=== PATIENT | female | born 1950 | race Caucasian/White ===

== ENCOUNTER 2020-02-21 08:54 | Outpatient (CLI) | payer MEDICARE, SELFPAY ==
--- NOTE | 2020-02-21 09:07 | CT_ITS ---
WS: [id number] LDCT LUNG CANCER SCREENING TECHNIQUE: Noncontrast CT of the chest with coronal and sagittal reformatted images. CLINICAL INFORMATION: NICOTINE DEPENDENCE, CIGARETTES COMPARISON: None. DLP: 52.6 mGy.cm DIvol: 1.[address] scans at [facility] use at least one of these dose optimization techniques: automat ed exposure control; mA and/or kV adjustment per patient size (includes targeted exams where dose is matched to clinical indication); or iterative reconstruction. FINDINGS: No suspicious pulmonary parenchymal opacities. Mild chronic emphysematous changes. No acute pulmonary infiltrates. Slight atelectasis in the lung ba ses. Mild thoracic curve. Mild thoracic kyphosis. No focal pneumonia or pleural fluid. No mediastinal or hilar lymphadenopathy. No axillary lymphadenopathy. Cholecystectomy clips. CT/CT lung screening [id number] IMPRESSION: LUNG-RADS: 1-Negative FOLLOW UP: 12 Month: Continue annual screening with LDCT
== END 2020-02-21 08:55 | disposition home or self-care (01) ==
PROVIDERS: PCP Nurse Practitioner Family; Visit Provider Nurse Practitioner Family
DX: Z12.2 Encounter for screening for malignant neoplasm of respiratory organs (principal); F17.210 Nicotine dependence, cigarettes, uncomplicated
CPT/HCPCS: G0297

== ENCOUNTER 2020-02-22 09:03 | Outpatient (CLI) | payer MEDICARE, SELFPAY ==
--- NOTE | 2020-02-22 09:08 | MM_ITS ---
WS: [id number] SCREENING DIGITAL MAMMOGRAM WITH CAD HISTORY: SCREENING COMPARISON: 01/06/2019 and 12/26/2017 Bilateral CC and MLO views submitted. Computer aided detection analyzed. Breast composition: There are scattered areas of fibroglandular density. No suspicious masses, microc alcifications or architectural distortion. MM/[place] [id number] IMPRESSION: BI-RADS: 1-Negative FOLLOW UP: 1 Year Follow-up
== END 2020-02-22 09:04 | disposition home or self-care (01) ==
LOC: RADSHAW 09:07
PROVIDERS: PCP Nurse Practitioner Family; Visit Provider Internal Medicine
DX: Z12.31 Encounter for screening mammogram for malignant neoplasm of breast (principal)
CPT/HCPCS: 77067

== ENCOUNTER 2020-02-24 14:38 | Outpatient (CLI) | payer MEDICARE, SELFPAY ==
--- NOTE | 2020-02-24 14:58 | XR_ITS ---
WS: [id number] Bone mineral density performed on a [place], today. Clinical data: OSTEOPENIA COMPARISON STUDY: DEXA scan, 12/26/2017. Findings: The first 4 lumbar vertebral bodies demonstrated the bone mineral density of 1.084 g/cm2 for a young adult T score of -0.8. There is a levoscoliosis. Measurement of the left hip reveals a bone mineral density of 0.788 g/cm2 with a young adult T score of -1.7. Measurement of the right hip reveals the bone mineral density of 0.805 g/cm2 for young adult T score of -1.6. XR/XR DEXA axial skeleton* [id number] Impression: 1. There is normal bone mineral density of the lumbar spine which represents an improvement from the previous study. 2. Both hips show osteopenia but the bone mineral density has improved slightly compared to previous study.
== END 2020-02-24 14:39 | disposition home or self-care (01) ==
LOC: RADWPI 14:43
PROVIDERS: PCP Nurse Practitioner Family; Visit Provider Internal Medicine
DX: M85.88 Other specified disorders of bone density and structure, other site (principal)
CPT/HCPCS: 77080

== ENCOUNTER → 2021-07-30 10:27 | Outpatient (BNVA) | payer OTHER, SELFPAY | PROVIDERS: Visit Provider Family Medicine | DX: F17.218 Nicotine dependence, cigarettes, with other nicotine-induced disorders (principal); Z76.89 Persons encountering health services in other specified circumstances; Z13.220 Encounter for screening for lipoid disorders; Z13.6 Encounter for screening for cardiovascular disorders | CPT/HCPCS: 80053; 80061; 85025 ==

== ENCOUNTER → 2021-08-10 16:53 | Outpatient (BNVA) | payer OTHER, SELFPAY | PROVIDERS: Visit Provider Emergency Medicine | DX: S62.112A Displaced fracture of triquetrum [cuneiform] bone, left wrist, initial encounter for closed fracture (principal); W19.XXXA Unspecified fall, initial encounter | CPT/HCPCS: 73110 ==

== ENCOUNTER → 2021-08-14 13:11 | Outpatient (BNVA) | payer OTHER, SELFPAY | PROVIDERS: Referring Provider Emergency Medicine; Visit Provider Physician Assistant | DX: S62.112A Displaced fracture of triquetrum [cuneiform] bone, left wrist, initial encounter for closed fracture (principal); X58.XXXA Exposure to other specified factors, initial encounter; M19.032 Primary osteoarthritis, left wrist | CPT/HCPCS: 73110 ==

== ENCOUNTER 2021-08-14 14:38 | Outpatient (CLI) | payer OTHER, SELFPAY | END 2021-08-14 14:39 | disposition home or self-care (01) | LOC: SPT 14:38 | PROVIDERS: Visit Provider Physician Assistant | DX: Z46.89 Encounter for fitting and adjustment of other specified devices (principal); S62.112D Displaced fracture of triquetrum [cuneiform] bone, left wrist, subsequent encounter for fracture with routine healing; X58.XXXD Exposure to other specified factors, subsequent encounter | CPT/HCPCS: 97760; L3809 ==

== ENCOUNTER → 2021-08-28 08:17 | Outpatient (BNVA) | payer OTHER, SELFPAY | PROVIDERS: Visit Provider Physician Assistant | DX: S62.112A Displaced fracture of triquetrum [cuneiform] bone, left wrist, initial encounter for closed fracture (principal); X58.XXXA Exposure to other specified factors, initial encounter | CPT/HCPCS: 73110 ==

== ENCOUNTER → 2022-09-22 13:33 | Outpatient (BNVA) | payer OTHER, SELFPAY | PROVIDERS: Visit Provider Emergency Medicine | DX: S99.922A Unspecified injury of left foot, initial encounter (principal); X58.XXXA Exposure to other specified factors, initial encounter; M20.12 Hallux valgus (acquired), left foot | CPT/HCPCS: 73630 ==

== ENCOUNTER 2023-07-03 09:46 | Outpatient (CLI) | payer MEDICARE, SELFPAY ==
--- NOTE | 2023-07-03 10:00 | XRR_ITS ---
PROCEDURE INFORMATION: Exam: XR Right Hip Exam date and time: 07/03/2023 10:04 AM Age: 73 years old Clinical indication: Hip pain; Right hip; Additional info: Right hip pain after fall - trouble ambulating TECHNIQUE: Imaging protocol: Radiologic exam of the right hip. Views: 1 view hip with pelvis when performed. COMPARISON: No relevant prior studies available. FINDINGS: Bones/joints: A small avulsion fracture is suspected from the greater trochanter. Otherwise, unremarkable. Soft tissues: Otherwise, unremarkable soft tissues. Vasculature: Calcified phleboliths. Small amount of arterial calcification. XR/XR hip RT 2-3V wo/w pel* [id number] IMPRESSION: A small avulsion fracture is suspected from the right greater trochanter.
== END 2023-07-03 09:47 | disposition home or self-care (01) ==
PROVIDERS: PCP Family Medicine; Visit Provider Nurse Practitioner Family
DX: M25.551 Pain in right hip (principal)
CPT/HCPCS: 73502

== ENCOUNTER 2023-07-04 12:21 | Inpatient (IN) | payer MEDICARE, SELFPAY ==
[2023-07-04 12:30] VITALS: BP 145/67; PULSE 85; RESP 16; TEMP 36.9; O2SAT 95; BMI 20.5
--- NOTE | 2023-07-04 14:13 | CT_ITS ---
WS: [id number] CT RIGHT HIP, NONCONTRAST, 3D. HISTORY: greater trochanter fracture Technique: All CT scans at [facility] use at least one of these dose optimization techniques: automated exposure control; mA and/or kV adjustment per patient size (includes targeted exams where dose is matched to clinical indication); or iterative reconstruction. DLP: 251.86 mGy.cm COMPARISON: Hip radiograph 07/03/2023 Comminuted fracture involving the greater trochanter. Fracture extends from the superior greater troc hanter inferiorly. There is mild displacement of this comminuted fracture. The fracture does not exte nd to the medial femoral neck. The femoral neck appears normal. No displacement at the hip joint. There is soft tissue edema and a small hematoma centered at the fracture site. Pubic rami is normal. IMPRESSION: 1. Comminuted RIGHT intertrochanteric fracture. Fracture extends from the superior to inferior great er trochanter. 2. No femoral neck fractures identified. The fracture line does not extend to the medial hip. If further evaluation is thought necessary noncontrast MRI would provide additional imaging concernin g marrow edema in the femoral neck. Notified Isaiah Baldwin DO at 07/04/2023 3:33 PM.
--- NOTE | 2023-07-04 14:38 | W.ED.FALL ---
Documented by User: Isaiah Baldwin DO 07/05/23 05:57 HPI - Fall General: Chief Complaint: Fall Stated Complaint: sent by Jose A Quick, hip pain Time Seen by Provider: 07/04/23 14:12 Source: patient Mode of arrival: ambulatory History of Present Illness: 73-year-old female who fell about a week and a half ago 2 weeks ago she is able to walk but had severe pain. She is complaining of pain to her right hip. She had seen her PCP in outpatient setting, x-ray showed a greater trochanter fracture that was moderately displaced however she continues to have pain. They consulted with orthopedics and they were directed here for advanced imaging. No other injuries from the fall. MD complaint: fall Onset (ago): week(s) (2) Fall from: standing Place fall occurred: home Associated symptoms-after fall: Reports difficulty walking; Denies abdominal pain, chest pain, confusion, headache(s), hematuria, lightheadedness, neck pain, numbness, short of breath, vertigo or weakness Review of Systems Const: Denies: fever(s) or chills Card: Denies: chest pain or lightheadedness Resp: Denies: dyspnea GI: Denies: abdominal pain : Denies: dysuria, urinary frequency, urinary urgency or hematuria Musc: Denies: neck pain or back pain Skin/Breast: Denies: rash Neuro: Reports: difficulty walking; Denies: headache(s), vertigo or confusion PFS ED PFSH: Medical History Tobacco use disorder Fall Osteoarthritis of wrist Fracture of triquetrum of left wrist Encounter for lipid screening for cardiovascular disease Nicotine dependence, cigarettes, with other nicotine-induced disorders Establishing care with new doctor, encounter for Surgical History History of tonsillectomy History of cholecystectomy Family History Mother CAD (coronary artery disease) Social History Smoking and tobacco/nicotine status: current every day tobacco/nicotine user Alcohol intake: current Alcohol intake frequency: holidays/special occasions only Substance/Drug Use: never Physical Exam Const: GENERAL APPEARANCE: cooperative and comfortable ORIENTATION/CONSCIOUSNESS: Yes awake, Yes oriented to person, Yes oriented to place and Yes oriented to time HENMT: COMMON NORMALS: normocephalic, atraumatic and hearing grossly normal bilaterally HEAD & SCALP: normocephalic and atraumatic Resp: COMMON NORMALS: normal respiratory effort, No retractions, No use of accessory muscles and clear to auscultation bilaterally AUSCULTATION: clear to auscultation bilaterally Cardio: COMMON NORMALS: regular rate, regular rhythm and No murmurs present (Cardio) RATE: regular rate RHYTHM: regular rhythm GI: COMMON NORMALS: Soft to palpation and No hepatosplenomegaly present AUSCULTATION: Yes normoactive bowel sounds PALPATION: Yes Soft to palpation, No Tenderness to palpation present (GI), No Guarding due to palpation present (GI) and Yes No hepatosplenomegaly present Extremity: COMMON NORMALS: normal to inspection, capillary refill normal, no clubbing, cyanosis or edema, no calf tenderness and no pedal edema OTHER: Left hip: Patient able to internally externally rotate without pain but unable to bear weight no obvious deformity. Neurovascular intact. Neuro: SENSORIUM/ORIENTATION: Yes oriented to person, Yes oriented to place and Yes oriented to time Skin: COMMON NORMALS: no rashes or lesions noted GENERAL SKIN EXAM: no rashes or lesions noted Course Vital Signs: Vital signs: Vital Signs Temperature 98.1 F 07/05/23 04:00 Pulse Rate 68 07/05/23 04:00 Respiratory Rate 17 07/05/23 04:00 Blood Pressure 153/73 07/05/23 04:00 Pulse Oximetry 95 07/05/23 04:00 Oxygen Delivery Me thod Room Air 07/04/23 20:28 MDM - Fall Medical Decision Making Care signed out to Dr. Villalta at change of shift. See final notes for diagnosis and disposition. Lab Data 07/05/23 03:18 07/05/23 03:18 Radiology Impressions Hip MRI 07/04/23 16:47 IMPRESSION: 1. Minimally displaced isolated fracture of the greater trochanter right femur with 2 mm fluid-filled gap. 2. In addition to the isolated fracture of the greater trochanter, there is near-complete/microtrabecular fracture involving the intertrochanteric femur with sparing the medial 1 cm without step-off of the medial cortex. Fracture line extends to the base of the lesser trochanter. Chest X-Ray 07/04/23 18:28 IMPRESSION: No acute findings. Laboratory Results WBC 13.46 10^3/uL (3.29-11.43) H 07/04/23 18:45 RBC 4.44 10^6/uL (3.85-5.65) 07/04/23 18:45 Hgb 14.50 g/dL (11.27-16.99) 07/04/23 18:45 Hct 42.6 % (36-47) 07/04/23 18:45 MCV 95.9 fl (85-98) 07/04/23 18:45 MCH 32.7 pg (27-33) 07/04/23 18:45 MCHC 34.0 g/dL (30-55) 07/04/23 18:45 RDW 13.7 % (12.1-15.1) 07/04/23 18:45 Plt Count 396 10^3/cmm (157-399) 07/04/23 18:45 MPV 8.9 fL (7.4-10.4) 07/04/23 18:45 Neut % (Auto) 52.7 % 07/04/23 18:45 Lymph % (Auto) 37.7 % 07/04/23 18:45 [place] % (Auto) 5.0 % 07/04/23 18:45 Eos % (Auto) 3.3 % 07/04/23 18:45 Baso % (Auto) 1.0 % 07/04/23 18:45 Neut # (Auto) 7.10 10^3/uL (1.8-7.7) 07/04/23 18:45 Lymph # (Auto) 5.1 10^3/uL (0.8-4.8) H 07/04/23 18:45 [place] # (Auto) 0.7 10^3/uL (0.2-0.9) 07/04/23 18:45 Eos # (Auto) 0.5 10^3/uL (0.0-0.8) 07/04/23 18:45 Baso # (Auto) 0.1 10^3/uL (0.0-0.1) 07/04/23 18:45 Nucleated RBC % (auto) 0 % 07/04/23 18:45 Nucleated RBCs # 0.0 /100WBC 07/04/23 18:45 PT 12.20 SECONDS (12.1-14.9) 07/04/23 18:45 INR 0.88 (0.8-1.2) 07/04/23 18:45 Sodium 142 mmol/L (136-145) 07/04/23 18:45 Potassium 4.2 mmol/L (3.5-5.1) 07/04/23 18:45 Chloride 104 mmol/L (98-107) 07/04/23 18:45 Carbon Dioxide 27 mmol/L (22-29) 07/04/23 18:45 Anion Gap 15.2 (5-19) 07/04/23 18:45 BUN 12 mg/dL (8-23) 07/04/23 18:45 Creatinine 0.5 mg/dL (0.5-0.9) 07/04/23 18:45 GFR Calculation Not Reportable 07/04/23 18:45 Glucose 106 mg/dL (65-115) 07/04/23 18:45 Calculated Osmolality 294 mOsm/kg (285-295) 07/04/23 18:45 Calcium 9.8 mg/dL (8.5-10.5) 07/04/23 18:45 Total Bilirubin 0.2 mg/dL (0.15-1.2) 07/04/23 18:45 AST 17 U/L (0-32) 07/04/23 18:45 ALT 9 U/L (0-33) 07/04/23 18:45 Alkaline Phosphatase 132 U/L (35-105) H 07/04/23 18:45 Total Protein 7.4 g/dL (6.6-8.7) 07/04/23 18:45 Albumin 4.4 g/dL (3.5-5.2) 07/04/23 18:45 Globulin 3.0 g/dL (1.3-4.6) 07/04/23 18:45 Blood Type AB Negative 07/04/23 19:16 Rho(D) Type Rh negative 07/04/23 19:16 Antibody Screen Negative 07/04/23 19:16 Discharge Plan Discharge Patient Disposition: Admitted As Inpatient Admit Provider: Garry Duncan Clinical Impression: Fall Closed intertrochanteric fracture of right hip Qualifiers: Encounter type: initial encounter Fracture alignment: displaced Qualified Code(s): S72.141A - Displaced intertrochanteric fracture of right femur, initial encounter for closed fracture Condition: Stable Coding Level of Care Code ED [employer] for Chg Fwd Documented by User: Sachin Villalta DO 07/05/23 00:36 HPI - Fall General: Chief Complaint: Fall Stated Complaint: sent by Jose A Quick, hip pain Time Seen by Provider: 07/04/23 14:12 [facility] ED PFSH: Medical History Tobacco use disorder Fall Osteoarthritis of wrist Fracture of triquetrum of left wrist Encounter for lipid screening for cardiovascular disease Nicotine dependence, cigarettes, with other nicotine-induced disorders Establishing care with new doctor, encounter for Surgical History History of tonsillectomy History of cholecystectomy Family History Mother CAD (coronary artery disease) Social History Smoking and tobacco/nicotine status: current every day tobacco/nicotine user Alcohol intake: current Alcohol intake frequency: holidays/special occasions only Substance/Drug Use: never Course Vital Signs: Vital signs: Vital Signs Temperature 98.1 F 07/05/23 04:00 Pulse Rate 68 07/05/23 04:00 Respiratory Rate 17 07/05/23 04:00 Blood Pressure 153/73 07/05/23 04:00 Pulse Oximetry 95 07/05/23 04:00 Oxygen Delivery Me thod Room Air 07/04/23 20:28 MDM - Fall Medical Decision Making Care signed out to Dr. Villalta at change of shift. See final notes for diagnosis and disposition. Lab work reviewed as well as chest x-ray hip MRI, Dr. Quick was consulted and discussed the patient with. He will plan for surgery tomorrow patient be admitted to the hospitalist Dr. Dakota Duncan was consulted and wanted to place the patient inpatient. Lab Data 07/05/23 03:18 07/05/23 03:18 Radiology Impressions Hip MRI 07/04/23 16:47 IMPRESSION: 1. Minimally displaced isolated fracture of the greater trochanter right femur with 2 mm fluid-filled gap. 2. In addition to the isolated fracture of the greater trochanter, there is near-complete/microtrabecular fracture involving the intertrochanteric femur with sparing the medial 1 cm without step-off of the medial cortex. Fracture line extends to the base of the lesser trochanter. Chest X-Ray 07/04/23 18:28 IMPRESSION: No acute findings. Laboratory Results WBC 13.46 10^3/uL (3.29-11.43) H 07/04/23 18:45 RBC 4.44 10^6/uL (3.85-5.65) 07/04/23 18:45 Hgb 14.50 g/dL (11.27-16.99) 07/04/23 18:45 Hct 42.6 % (36-47) 07/04/23 18:45 MCV 95.9 fl (85-98) 07/04/23 18:45 MCH 32.7 pg (27-33) 07/04/23 18:45 MCHC 34.0 g/dL (30-55) 07/04/23 18:45 RDW 13.7 % (12.1-15.1) 07/04/23 18:45 Plt Count 396 10^3/cmm (157-399) 07/04/23 18:45 MPV 8.9 fL (7.4-10.4) 07/04/23 18:45 Neut % (Auto) 52.7 % 07/04/23 18:45 Lymph % (Auto) 37.7 % 07/04/23 18:45 Flag[place] % (Auto) 5.0 % 07/04/23 18:45 Eos % (Auto) 3.3 % 07/04/23 18:45 Baso % (Auto) 1.0 % 07/04/23 18:45 Neut # (Auto) 7.10 10^3/uL (1.8-7.7) 07/04/23 18:45 Lymph # (Auto) 5.1 10^3/uL (0.8-4.8) H 07/04/23 18:45 [place] # (Auto) 0.7 10^3/uL (0.2-0.9) 07/04/23 18:45 Eos # (Auto) 0.5 10^3/uL (0.0-0.8) 07/04/23 18:45 Baso # (Auto) 0.1 10^3/uL (0.0-0.1) 07/04/23 18:45 Nucleated RBC % (auto) 0 % 07/04/23 18:45 Nucleated RBCs # 0.0 /100WBC 07/04/23 18:45 PT 12.20 SECONDS (12.1-14.9) 07/04/23 18:45 INR 0.88 (0.8-1.2) 07/04/23 18:45 Sodium 142 mmol/L (136-145) 07/04/23 18:45 Potassium 4.2 mmol/L (3.5-5.1) 07/04/23 18:45 Chloride 104 mmol/L (98-107) 07/04/23 18:45 Carbon Dioxide 27 mmol/L (22-29) 07/04/23 18:45 Anion Gap 15.2 (5-19) 07/04/23 18:45 BUN 12 mg/dL (8-23) 07/04/23 18:45 Creatinine 0.5 mg/dL (0.5-0.9) 07/04/23 18:45 GFR Calculation Not Reportable 07/04/23 18:45 Glucose 106 mg/dL (65-115) 07/04/23 18:45 Calculated Osmolality 294 mOsm/kg (285-295) 07/04/23 18:45 Calcium 9.8 mg/dL (8.5-10.5) 07/04/23 18:45 Total Bilirubin 0.2 mg/dL (0.15-1.2) 07/04/23 18:45 AST 17 U/L (0-32) 07/04/23 18:45 ALT 9 U/L (0-33) 07/04/23 18:45 Alkaline Phosphatase 132 U/L (35-105) H 07/04/23 18:45 Total Protein 7.4 g/dL (6.6-8.7) 07/04/23 18:45 Albumin 4.4 g/dL (3.5-5.2) 07/04/23 18:45 Globulin 3.0 g/dL (1.3-4.6) 07/04/23 18:45 Blood Type AB Negative 07/04/23 19:16 Rho(D) Type Rh negative 07/04/23 19:16 Antibody Screen Negative 07/04/23 19:16 All radiology interpretation(s) finalized by discharge Discharge Plan Discharge Patient Disposition: Admitted As Inpatient Admit Provider: Garry Duncan Clinical Impression: Fall Closed intertrochanteric fracture of right hip Qualifiers: Encounter type: initial encounter Fracture alignment: displaced Qualified Code(s): S72.141A - Displaced intertrochanteric fracture of right femur, initial encounter for closed fracture Condition: Stable Coding Level of Care Code ED [employer] for Graciela Gerard
--- NOTE | 2023-07-04 16:47 | MRR_ITS ---
PROCEDURE INFORMATION: Exam: MR Right Lower Extremity Joint Without Contrast; Hip Exam date and time: 07/04/2023 5:17 PM Age: 73 years old Clinical indication: Pain; Hip; Right; Patient HX: Patient fell 2 weeks ago; Additional info: Greater trochanter FX, unable to bear weight TECHNIQUE: Imaging protocol: Magnetic resonance imaging of the right lower extremity joint without contrast. Exam focused on the hip. COMPARISON: CT hip RT wo con* [id number] 07/04/2023 3:10 PM FINDINGS: Bones/joints: There is a mildly displaced fracture of the greater trochanter with fluid filled gap measuring 2 mm. In addition to the isolated fracture of the greater trochanter, there is near-complete/microtrabecular fracture involving the intertrochanteric femur there is sparing the medial 1 cm without step-off of the medial cortex. Fracture line extends to the base of the lesser trochanter as seen on series 301, image 13. No subcapital femur fracture. Femoral head is intact. No avascular necrosis. There are moderate degenerative changes in the right hip. There is a small right hip joint effusion. No fracture of the right acetabulum or visualized pubic rami. No dislocation. Labrum: Unremarkable. No tear. TENDONS: Tendons of iliopsoas group: Unremarkable. No evidence of tear. Tendons of medial compartment of thigh: Unremarkable. No evidence of tear. Tendons of lateral rotators of hip: Unremarkable. No evidence of tear. Tendons of gluteal group: Unremarkable. No evidence of tear. Tendons of posterior compartment of thigh: Right hamstring tendon insertion is intact. Soft tissues: There is abundant edema right gluteus minimus and medius tendons and muscles associated with the fracture of the greater trochanter. There is also muscle edema of the adductor muscles, proximal quadriceps muscles and quadratus femoris. Mild patchy edema of the right gluteus brandon muscle. MR/MR hip RT wo con* [id number] IMPRESSION: 1. Minimally displaced isolated fracture of the greater trochanter right femur with 2 mm fluid-filled gap. 2. In addition to the isolated fracture of the greater trochanter, there is near-complete/microtrabecular fracture involving the intertrochanteric femur with sparing the medial 1 cm without step-off of the medial cortex. Fracture line extends to the base of the lesser trochanter.
--- NOTE | 2023-07-04 17:00 | PC.NURSE ---
pt states that her last food and drink was at 1200 today
--- NOTE | 2023-07-04 18:23 | P.CONIM_ITS ---
Providers/Reason For Consult 2 Consulting Physician/Specialty*: Eric Quick DO/orthopedic surgery Reason for Consult*: Right hip fracture Requesting Physician: Dr. Baldwin/Dr. Villalta Attending Physician: Hospitalist Primary Care Provider: Maryuri Isbell DO History of Present Illness History of Present Illness Sharyn Munoz is a 73 year old female with a past medical history significant for tobacco use disorder who presents to the emergency department with right hip pain. She states over [place] weekend she was getting out of the car and got tripped on a backpack strap for which she fell onto her right hip. She states since that time she has had severe pain when walking. Exertion worsens. Rest improves the pain. She has been taking some ibuprofen with some pain relief. She was seen yesterday in the clinic and diagnosed with a hip fracture. She presents to the emergency department due to to persistent pain and orthopedic evaluation. In the emergency department had a CT scan which showed greater trochanteric femur fracture with possible fracture line extending to the lesser. An MRI was ordered for evaluation of edema and communication of the isolated greater trochanter fracture to the lesser. She was found to have edema all along the intertrochanteric region To the lesser. At this point in time has a nondisplaced intertrochanteric femur fracture and would recommend hospitalization surgical intervention as she has had 2 weeks of persistent severe right hip pain when she ambulates with no improvement. She has a history of smoking. No other issues or complaints at this time. Denies any fevers or chills, nausea or vomiting. Plan will be n.p.o. at midnight and OR tomorrow for right hip trochanteric femur nail. Family at bedside. Review of Systems 2 General: Reports: 10 or more systems reviewed and unremarkable except in HPI and below Medications/Allergies Home Medications Medication Instructions Recorded Confirmed Last Taken Type ibuprofen 200 mg capsule 200 mg PO Q4H PRN Pain 07/04/23 07/04/23 07/04/23 History vitamin C 45 mg-zinc citrate 3.75 1 tab PO DAILY 07/04/23 07/04/23 07/04/23 History mg-elderberry 50 mg chewable tablet ([employer]) Allergies Allergy/AdvReac Type Severity Reaction Status Date / Time Penicillins Allergy ALGY-Swell Verified 07/03/23 09:21 Lip/Tongue/Throat FIBERGLASS Allergy Intermediate blisters Uncoded 07/03/23 09:21 PFSH Acute 2 PFSH: Medical History Tobacco use disorder Fall Osteoarthritis of wrist Fracture of triquetrum of left wrist Encounter for lipid screening for cardiovascular disease Nicotine dependence, cigarettes, with other nicotine-induced disorders Establishing care with new doctor, encounter for Surgical History History of tonsillectomy History of cholecystectomy Family History Mother CAD (coronary artery disease) Social History Smoking and tobacco/nicotine status: current every day tobacco/nicotine user Alcohol intake: current Alcohol intake frequency: holidays/special occasions only Substance/Drug Use: never Vitals/I&O/Wt Last Vital Signs Temp 98.4 F 07/04/23 12:30 Pulse 85 07/04/23 12:30 Resp 16 07/04/23 12:30 BP 145/67 07/04/23 12:30 Pulse Ox 95 07/04/23 12:30 Weight last 48 hrs Weight 120 lb Physical Exam 2 Narrative: Examination of the right hip: Examination of the right hip right lower extremity is in good clinical alignment there is no shortening or externally rotated. She has minimal tenderness palpation over the right trochanteric bursa and right greater trochanter. She is able to tolerate a logroll examination but has pain with any weightbearing. She is able to wiggle toes plantarflex and dorsiflex ankle sensations intact light touch distally. No significant limit on hip flexion internal rotation. Compartments are soft compressible secondary survey examination unremarkable she has no tenderness palpation of the lower knee tib-fib foot or ankle. Secondary survey examination to the bilateral upper extremity joints and left lower extremity joints are in good alignment position normal range of motion with no pain or discomfort no tenderness to palpation and gross motor and sensory appears to be intact. Data 07/04/23 18:45 07/04/23 18:45 Xray Ortho: My impression: X-rays of the right hip reviewed in person interpreted by myself demonstrating an isolated greater trochanteric femur fracture CT scan of the right hip reviewed demonstrates a greater trochanteric femur fracture with possible intertrochanteric extension MRI of the right hip reviewed personally interpreted by myself demonstrating a isolated greater trochanteric femur fracture with bone edema and fracture line along the intertrochanteric line up to the lesser trochanter but no violation of the lesser trochanter cortex Radiologist's impression: MR/MR hip RT wo con* [id number] IMPRESSION: 1. Minimally displaced isolated fracture of the greater trochanter right femur with 2 mm fluid-filled gap. 2. In addition to the isolated fracture of the greater trochanter, there is near-complete/microtrabecular fracture involving the intertrochanteric femur with sparing the medial 1 cm without step-off of the medial cortex. Fracture line extends to the base of the lesser trochanter. IMPRESSION: 1. Comminuted RIGHT intertrochanteric fracture. Fracture extends from the superior to inferior greater trochanter. 2. No femoral neck fractures identified. The fracture line does not extend to the medial hip. If further evaluation is thought necessary noncontrast MRI would provide additional imaging concerning marrow edema in the femoral neck. A&P Assessment and plan (1) Closed intertrochanteric fracture of right hip: Qualifiers: Encounter type: initial encounter Fracture alignment: displaced Qualified Code(s): S72.141A - Displaced intertrochanteric fracture of right femur, initial encounter for closed fracture Plan N.p.o. at midnight may have a diet today X-rays, CT scan and MRI reviewed Nonweightbearing right lower extremity Ice as needed Pain control Hospitalist to admit patient as primary Orthopedics consulted Plan to proceed to the OR tomorrow for a right hip trochanteric femur nail MDM: 73-year-old female sustained a ground-level fall on the right hip found to have an isolated greater trochanteric femur fracture was initially sent for outpatient referral would recommend evaluation as she is continued to have persistent pain went to the emergency department had appropriate workup and ultimately led to an MRI scan which shows intertrochanteric fracture line extension and at this point time would recommend surgical intervention. Given she has had 2 weeks of persistent pain and inability to bear hardly any weight and continual no improvement for pain control as well as earlier mobilization would recommend surgical intervention of the right hip trochanteric femur nail. We talked about the ins and outs procedure risk benefits complication alternatives of surgery. Risk of surgery include but not limited to make a better make it worse injury nerves vessels or tendons, hardware failure complications, infection, persistent pain. Understanding risk of surgery elects to proceed all questions been answered at this time. Will get her added onto the surgery schedule tomorrow. Will make her n.p.o. at midnight. Given the isolated greater trochanteric femur line extending the intertrochanteric region we will treat as a nondisplaced intertrochanteric femur fracture with a short trochanteric femur nail. She understands and agrees with current plan. Questions answered. Coding Level of Care Code Acute Code for [facility] Fwd Diagnoses Closed intertrochanteric fracture of right hip S72.141A Encounter type: initial encounter Fracture alignment: displaced
--- NOTE | 2023-07-04 18:28 | XRR_ITS ---
PROCEDURE INFORMATION: Exam: XR Chest Exam date and time: 07/04/2023 6:47 PM Age: 73 years old Clinical indication: Other: Pre op for ortho surgery; Additional info: Presurgical clearance TECHNIQUE: Imaging protocol: Radiologic exam of the chest. Views: 1 view. COMPARISON: CT lung screening [id number] 02/21/2020 9:16 AM FINDINGS: Lungs: Unremarkable. No consolidation. Pulmonary vascularity is within normal limits. Pleural spaces: Unremarkable. No pleural effusion. No pneumothorax. Heart/Mediastinum: Unremarkable. No cardiomegaly. Bones/joints: No acute abnormality. Unchanged dextroscoliosis and moderate degenerative changes in the spine. XR/XR chest 1V portable [id number] IMPRESSION: No acute findings.
--- NOTE | 2023-07-04 18:28 | ECG_ITS ---
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 Measurements Intervals Independence Rate: 61 P: 68 MD: 142 QRS: 69 QRSD: 90 T: 65 QT: 378 QTc: 383 Interpretive Statements SINUS RHYTHM POSSIBLE LEFT ATRIAL ENLARGEMENT [-0.1mV P-WAVE IN V1/V2] SEPTAL MYOCARDIAL INFARCTION , OF INDETERMINATE AGE [40+ ms Q WAVE IN V1/V2] No previous ECG available for comparison Electronically Signed On 07-04-2023 23:11:08 CDT by Matteo Gaffney M.D. [id number]
[2023-07-04 18:57] LABS: Basophils # 0.1 10^3/uL (0.0-0.1); Eosinophils # 0.5 10^3/uL (0.0-0.8); Eosinophils % 3.3 %; Hematocrit 42.6 % (36-47); Lymphocytes # 5.1 10^3/uL (0.8-4.8); Lymphocytes % 37.7 %; Mean Corpuscular Hemoglobin 32.7 pg (27-33); Mean Corpuscular Volume 95.9 fl (85-98); Mean Platelet Volume 8.9 fL (7.4-10.4); Monocytes # 0.7 10^3/uL (0.2-0.9); Neutrophils % 52.7 %; Nucleated Red Blood Cells % 0 %; Platelet Count 396 10^3/cmm (157-399); Red Blood Count 4.44 10^6/uL (3.85-5.65); Red Cell Distribution Width 13.7 % (12.1-15.1); White Blood Count 13.46 10^3/uL (3.29-11.43)
[2023-07-04] MEDS: nicotine 21 mg Patch 1 PATCH TRANSDERMA (19:00)
[2023-07-04 19:15] LABS: Alanine Aminotransferase 9 U/L (0-33); Albumin Level 4.4 g/dL (3.5-5.2); Alkaline Phosphatase 132 U/L (35-105); Anion Gap 15.2 (5-19); Aspartate Amino Transferase 17 U/L (0-32); Blood Urea Nitrogen 12 mg/dL (8-23); Calcium 9.8 mg/dL (8.5-10.5); Carbon Dioxide 27 mmol/L (22-29); Chloride 104 mmol/L (98-107); Glucose 106 mg/dL (65-115); Osmolality Calculated 294 mOsm/kg (285-295); Potassium 4.2 mmol/L (3.5-5.1); Sodium 142 mmol/L (136-145); Total Bilirubin 0.2 mg/dL (0.15-1.2); Total Protein 7.4 g/dL (6.6-8.7)
[2023-07-04] MEDS: ketorolac 30 mg/mL INJ IVP (19:17)
[2023-07-04] MEDS: clindamycin 600 MG/50 ML PREMIX 100 MG IV (19:18)
[2023-07-04 19:29] LABS: INR 0.88 (0.8-1.2)
--- NOTE | 2023-07-04 19:57 | PM.HP ---
Providers/Chief Complaint Primary Care Provider: Maryuri Isbell DO Chief Complaint: sent by Jose A Quick, hip pain History of Present Illness Sharyn Munoz is a 73 year old female with a past medical history significant for tobacco use disorder who presents to the emergency department with right hip pain. She states over Easter weekend she was getting out of the car and got tripped on a backpack strap for which she fell onto her right hip. She states since that time she has had severe pain when walking. Exertion worsens. Rest improves the pain. She has been taking some ibuprofen with some pain relief. She was seen yesterday in the clinic and diagnosed with a hip fracture. She presents to the emergency department due to to persistent pain and orthopedic evaluation. In the ED, right hip CT showed comminuted intertrochanteric fracture. Hip MRI further evaluated showing minimally displaced isolated fracture of the greater trochanteric right femur with 2 mm fluid-filled gap, as well as near complete/microtrabecular fracture involving the intertrochanteric femur with sparing of the medial 1 cm without step-off of the medial cortex. Orthopedic surgery was consulted. Planning on surgical fixation on 07/04. Patient received analgesics in the ER. She currently rates her pain 0 out of 10. Review of Systems Narrative: A complete review of systems was obtained and is negative except as stated in HPI. Medications/Allergies Home Medications Medication Instructions Recorded Confirmed Last Taken Type ibuprofen 200 mg capsule 200 mg PO Q4H PRN Pain 07/04/23 07/04/23 07/04/23 History vitamin C 45 mg-zinc citrate 3.75 1 tab PO DAILY 07/04/23 07/04/23 07/04/23 History mg-elderberry 50 mg chewable tablet ([employer] Allergies Allergy/AdvReac Type Severity Reaction Status Date / Time Penicillins Allergy ALGY-Swell Verified 07/03/23 09:21 Lip/Tongue/Throat FIBERGLASS Allergy Intermediate blisters Uncoded 07/03/23 09:21 PFSH Acute PFSH: Medical History Tobacco use disorder Fall Osteoarthritis of wrist Fracture of triquetrum of left wrist Encounter for lipid screening for cardiovascular disease Nicotine dependence, cigarettes, with other nicotine-induced disorders Establishing care with new doctor, encounter for Surgical History History of tonsillectomy History of cholecystectomy Family History Mother CAD (coronary artery disease) Social History Smoking and tobacco/nicotine status: current every day tobacco/nicotine user Alcohol intake: current Alcohol intake frequency: holidays/special occasions only Substance/Drug Use: never Vitals/I&O/Wt Last Vital Signs Temp 98.4 F 07/04/23 12:30 Pulse 85 07/04/23 12:30 Resp 16 07/04/23 12:30 BP 145/67 07/04/23 12:30 Pulse Ox 95 07/04/23 12:30 07/04/23 07/04/23 07/04/23 06:59 14:59 22:59 Intake Total 50 / 50 Balance 50 / 50 Weight last 48 hrs Weight 54.431 kg Physical Exam Narrative: General: Patient is awake and alert. Head: Normocephalic. Atraumatic. EOM intact. Neck: No JVD. Cardiovascular: RRR. No gallops. No murmurs. No peripheral edema. Lungs: Clear to auscultation, no use of accessory muscles, no crackles or wheezes. Skin: No jaundice. No rashes. Abdomen: Normal bowel sounds, abdomen soft and nontender. Genito Urinary: Genital exam not performed since complaints not related. Rectal: Rectal exam not performed since no symptoms indicated blood loss. Extremities: No cyanosis or clubbing. Bilateral pedal pulse intact. Musculoskeletal: No erythematous joints. Right lower extremity evaluation limited due to known fracture. Neurological: No myoclonus. Data 07/04/23 18:45 07/04/23 18:45 A&P Assessment and plan (1) Closed intertrochanteric fracture of right hip: Type and cross CXR and EKG reviewed Bedrest Bedolla Tylenol for mild pain Oxycodone for moderate pain Morphine for severe pain Start bowel regimen Orthopedic surgery consulted, anticipate surgical fixation on 07/04 NPO after midnight SCDs PT/OT after surgery Qualifiers: Encounter type: initial encounter Fracture alignment: displaced Qualified Code(s): S72.141A - Displaced intertrochanteric fracture of right femur, initial encounter for closed fracture (2) Tobacco use disorder: We discussed cessation; she is in contemplation stage Plans on using patch (3) Leukocytosis: Likely stress induced; currently no evidence of infection Continue to monitor (4) Elevated alkaline phosphatase level: Mild, likely secondary to to bone fracture Plan DVT ppx: SCD. Plan for pharmacological dvt ppx post-op Code status: Full Code Attestations Medical Necessity Statement*: Pt presents with recent mechanical fall, found to have displaced hip fracture with expected hospitalization to cross two midnights for pain control, surgical intervention, post-op care, therapy evaluation, and supportive care. Coding Level of Care Code Acute Code for [facility] Fwd Diagnoses Closed intertrochanteric fracture of right hip S72.141A Encounter type: initial encounter Fracture alignment: displaced Tobacco use disorder F17.200 Leukocytosis D72.829 Elevated alkaline phosphatase level R74.8
[2023-07-04 20:10] VITALS: BP 183/104; PULSE 60; RESP 16; O2SAT 98
[2023-07-04 20:25] VITALS: BP 190/88; PULSE 64; RESP 17; TEMP 36.6; O2SAT 96
[2023-07-04 20:28] VITALS: BMI 21.4
[2023-07-04 22:14] VITALS: RESP 18
[2023-07-04] MEDS: morphine 4 mg/mL SDV 1 mL 2 MG IVP (22:14)
--- NOTE | 2023-07-04 23:39 | PC.NURSE ---
upon addmission to [facility] floor, order for adan insertion was put in, at the time of transferring orders, this nurse told the patient that orders for insertion was there and patient refused insertion. patient stated that she has had many surgeries previous and has never had insertion of adna previously. this nurse told patient it was for surgery, but patient still refused.
[2023-07-05] VITALS (23 sets, daily range): BP systolic 127–196; BP diastolic 63–101; PULSE 64–100; RESP 12–20; TEMP 36.4–37.2; O2SAT 91–100
[2023-07-05] MEDS: dextrose 5%-sod chloride 0.45% 1,000 ML 50 ML IV ×2 (00:51→21:19)
[2023-07-05 04:00] LABS: Basophils # 0.1 10^3/uL (0.0-0.1); Basophils % 0.8 %; Eosinophils # 0.3 10^3/uL (0.0-0.8); Eosinophils % 2.3 %; Hematocrit 41.9 % (36-47); Lymphocytes # 2.9 10^3/uL (0.8-4.8); Mean Corpuscular HGB Conc 32.9 g/dL (30-55); Mean Corpuscular Hemoglobin 31.7 pg (27-33); Mean Corpuscular Volume 96.3 fl (85-98); Mean Platelet Volume 9.4 fL (7.4-10.4); Monocytes # 0.7 10^3/uL (0.2-0.9); Monocytes % 4.6 %; Neutrophils # 10.53 10^3/uL (1.8-7.7); Nucleated Red Blood Cells % 0 %; Platelet Count 391 10^3/cmm (157-399); Red Blood Count 4.35 10^6/uL (3.85-5.65); Red Cell Distribution Width 13.4 % (12.1-15.1); White Blood Count 14.62 10^3/uL (3.29-11.43)
[2023-07-05 04:17] LABS: Anion Gap 13.5 (5-19); Blood Urea Nitrogen 14 mg/dL (8-23); Calcium 9.6 mg/dL (8.5-10.5); Carbon Dioxide 26 mmol/L (22-29); Chloride 105 mmol/L (98-107); Creatinine Clr Calc Pharmacy 55.7104; Glucose 172 mg/dL (65-115); Magnesium 2.2 mg/dL (1.7-2.3); Osmolality Calculated 295 mOsm/kg (285-295); Phosphorus 3.8 mg/dL (2.5-4.5); Potassium 4.5 mmol/L (3.5-5.1); Sodium 140 mmol/L (136-145)
[2023-07-05] MEDS: morphine 4 mg/mL SDV 1 mL 2 MG IVP ×2 (09:07→15:47)
--- NOTE | 2023-07-05 09:44 | P.PN_ITS ---
Subjective 2 Subjective: No acute events overnight Patient seen at her bedside and reports some pain . She has no other complaints. Vitals/I&O/Wt Last Vital Signs Temp 98.1 F 07/05/23 07:25 Pulse 74 07/05/23 07:25 Resp 16 07/05/23 09:07 BP 171/85 07/05/23 07:25 Pulse Ox 96 07/05/23 07:25 O2 Del Method Room Air 07/05/23 07:25 07/04/23 07/05/23 07/05/23 22:59 06:59 14:59 Intake Total 50 / 50 Balance 50 / 50 Weight last 48 hrs Weight 56.331 kg Weight 56.744 kg Weight 54.431 kg Physical Exam 2 Const: COMMON NORMALS: no acute distress, patient oriented x3 and alert HENMT: COMMON NORMALS: normocephalic, atraumatic, external ears normal, Normal external nose present, moist oral mucous membranes and oropharynx normal HEAD & SCALP: normocephalic and atraumatic NOSE: Normal external nose present E XTERNAL EAR: Yes external ears normal Eye: COMMON NORMALS: Equal, round and reactive pupils present, EOMs intact bilaterally, conjunctivae normal and no scleral icterus CONJUNCTIVA: Yes conjunctivae normal PUPIL: Yes Equal, round and reactive pupils present Neck/C-Spine: COMMON NORMALS: full ROM, no lymphadenopathy and no JVD Chest: COMMONS NORMALS: normal inspection of the chest Resp: COMMON NORMALS: normal respiratory effort and clear to auscultation bilaterally AUSCULTATION: clear to auscultation bilaterally OTHER: No wheezes or crcakles Cardio: COMMON NORMALS: no JVD, regular rate, regular rhythm, S1 normal heart sound present and S2 normal heart sound present RATE: regular rate RHYTHM: regular rhythm HEART SOUNDS: S1 normal heart sound present and S2 normal heart sound present GI: COMMON NORMALS: Normal to inspection, nondistended, normoactive bowel sounds present, Soft to palpation and non-tender PALPATION: Yes Soft to palpation Extremity: COMMON NORMALS: normal to inspection and no pedal edema N ARRATIVE EXTREMITY EXAM: Further exam limited due to known fracture Neuro: COMMON NORMALS: patient oriented x3 SENSORIUM/ORIENTATION: Yes alert OTHER: No gross focal deficits Data 07/05/23 03:18 07/05/23 03:18 A&P Assessment and plan (1) Closed intertrochanteric fracture of right hip: -Due to Fall -Patient for surgical fixation today -Ct supportive care, pain medications -SCDs -PT/OT after surgery -DVT prophylaxis after surgery Qualifiers: Encounter type: initial encounter Fracture alignment: displaced Qualified Code(s): S72.141A - Displaced intertrochanteric fracture of right femur, initial encounter for closed fracture (2) Tobacco use disorder: -Ct to encourage cessation (3) Leukocytosis: - Thought to be stress induced -Will check UA (4) Elevated alkaline phosphatase level: - likely secondary to to bone fracture -Trend Plan DVT ppx: SCD Attestations 2 Medical Necessity Statement*: Patient to continue inpatient care for surgical intervention , pain control, post op care and physical therapy evaluation Coding Level of Care Code Acute Code for [facility] Fwd Diagnoses Closed intertrochanteric fracture of right hip S72.141A Encounter type: initial encounter Fracture alignment: displaced Tobacco use disorder F17.200 Leukocytosis D72.829 Elevated alkaline phosphatase level R74.8
[2023-07-05 11:15] LABS: Add Urine Culture? No; Amorphous Sediment Urine TRACE /hpf; Bacteria Urine TRACE /hpf; Bilirubin Urine Neg (Negative); Blood Urine Neg (Negative); Calcium Oxalate Crystals Urine 0-4 /hpf; Glucose Urine UA Norm (Normal); Ketones Urine Negative (Negative); Leukocyte Esterase Urine Negative (Negative); Nitrate Urine Negative (Negative); Protein Urine Neg (Negative); Squamous Epithelial Cell Urine RARE /hpf (0-5); Urine Appearance Clear (CLEAR); Urine Color Straw (Yellow); Urobilinogen Urine Norm (Negative); pH Urine 7 (5-7)
--- NOTE | 2023-07-05 12:49 | XRR_ITS ---
PROCEDURE INFORMATION: Exam: XR Right Femur Exam date and time: 07/05/2023 12:01 PM Age: 73 years old Clinical indication: Pain; Hip; Right; Additional info: Right hip FX TECHNIQUE: Imaging protocol: Radiologic exam of the right femur. Views: 2 views. COMPARISON: MR hip RT wo con* [id number] 07/04/2023 5:17 PM FINDINGS: Bones/joints: Comminuted fracture of greater trochanter. There is extension to proximal intertrochanteric area. Soft tissues: Unremarkable. XR/XR femur RT min 2V* [id number] IMPRESSION: Comminuted fracture of the greater trochanter with proximal intertrochanteric area extension. Recent MRI showed microtrabecular fracture involving intertrochanteric region, not well visualized on radiograph.
--- NOTE | 2023-07-05 13:00 | P.HPUD_ITS ---
Surgery/Procedure H&P Update DATE OF PROCEDURE: July 05, 2023 DATE H&P PERFORMED: 07/04/23 H&P UPDATE INFORMATION: I have reviewed H&P completed within last 30 days, I have examined patient prior to procedure and No changes to prior documentation CHANGES TO PREVIOUS DOCUMENTATION: Will have full-length femur x-rays including the knee x-rays prior to taking patient back for preoperative planning. Plan is for short trochanteric femur na il. PREOP DIAGNOSIS: Right hip intertrochanteric femur fracture PRIMARY INDICATION FOR PROCEDURE: Right hip intertrochanteric femur fracture PLANNED PROCEDURE: Operation Date: 07/05/23 13:30 Proposed Procedures p Trochanteric Femoral Nail(Right) - Eric Quick DO
--- NOTE | 2023-07-05 13:00 | XR_ITS ---
WS: [id number] Exam: XR hip RT 2-3V wo/w pel* [id number] Date/Time of Exam: 07/05/2023 1:00 PM Reason For Exam: RT TFN; OR PICS Comparison 07/05/2023. Intraoperative AP and lateral C-arm images of the RIGHT hip show internal fixation involving an inter trochanteric fracture of the RIGHT hip. The fracture is in anatomic alignment for healing. An intrame dullary alejandra and femoral neck screw stabilize the fracture. IMPRESSION: 1. Satisfactory ORIF of an intertrochanteric fracture of the RIGHT hip.
[2023-07-05] MEDS: tranexamic acid 1,000 mg/10mL SDV 1000 MG IV (13:30)
--- NOTE | 2023-07-05 13:39 | P.ANESASSM_ITS ---
Pre-Anesthetic Assessment Height/Weight: Height 1.63 m Weight 56.331 kg Temp Pulse Resp BP Pulse Ox O2 Del Method 98.9 F 70 18 176/99 93 Room Air 07/05/23 12:00 07/05/23 12:00 07/05/23 12:00 07/05/23 12:00 07/05/23 12:00 07/05/23 12:00 Preop Diagnosis: Right hip intertrochanteric femur fracture Operation Date: 07/05/23 13:30 Proposed Procedures p Trochanteric Femoral Nail(Right) - Eric Quick, Familial anesthetic complications: None Was Beta Raheem taken within 24 hours: N/A Was Clonidine taken within 24 hours: N/A Last intake: > 8 hrs Social Tobacco and No alcohol Exam alert, oriented x 3, clear to auscultation bilaterally and regular rate & rhythm Airway Mallampati: Class II Anesthetic Plan ASA status: 2 Anesthesia: General Risk of > 500 ml blood loss (7ml/kg in children): No Medications/Allergies Home Medications Medication Instructions Recorded Confirmed Last Taken Type ibuprofen 200 mg capsule 200 mg PO Q4H PRN Pain 07/04/23 07/04/23 07/04/23 History vitamin C 45 mg-zinc citrate 3.75 1 tab PO DAILY 07/04/23 07/04/23 07/04/23 History mg-elderberry 50 mg chewable tablet ([employer]) Allergies Allergy/AdvReac Type Severity Reaction Status Date / Time Penicillins Allergy ALGY-Swell Verified 07/03/23 09:21 Lip/Tongue/Throat FIBERGLASS Allergy Intermediate blisters Uncoded 07/03/23 09:21 Current Medications Generic Name Dose Route Start Last Admin Trade Name Freq PRN Reason Stop Dose Admin Dextrose/Sodium Chloride 1,000 mls @ 50 mls/hr 07/04/23 23:55 07/05/23 00:51 Dextrose 5%-Sod Chloride 0.45% IV 50 mls/hr .Q20H RAMONA Administration Morphine Sulfate 2 mg 07/04/23 18:28 07/05/23 09:07 Morphine 4 Mg/Ml Sdv 1 Ml IVP 2 mg Q4H PRN Administration PAIN Senna 17.2 mg 07/04/23 21:00 07/04/23 20:48 Sennosides 8.6 Mg Tablet PO Not Given BEDTIME RAMONA PFSH Anesthesia Medical History Tobacco use disorder Fall Osteoarthritis of wrist Fracture of triquetrum of left wrist Encounter for lipid screening for cardiovascular disease Nicotine dependence, cigarettes, with other nicotine-induced disorders Establishing care with new doctor, encounter for Surgical History History of tonsillectomy History of cholecystectomy Family History Mother CAD (coronary artery disease) Social History Smoking and tobacco/nicotine status: current every day tobacco/nicotine user Alcohol intake: current Alcohol intake frequency: holidays/special occasions only Substance/Drug Use: never Data Anesthesia 07/05/23 03:18 07/05/23 03:18 Short CBC 07/04/23 07/05/23 Range/Units 18:45 03:18 WBC 13.46 H 14.62 H (3.29-11.43) 10^3/uL Hgb 14.50 13.80 (11.27-16.99) g/dL Hct 42.6 41.9 (36-47) % MCV 95.9 96.3 (85-98) fl Plt Count 396 391 (157-399) 10^3/cmm Neut % (Auto) 52.7 72.0 % Neut # (Auto) 7.10 10.53 H (1.8-7.7) 10^3/uL BMP 07/04/23 07/05/23 18:45 03:18 Sodium 142 140 Potassium 4.2 4.5 Chloride 104 105 Carbon Dioxide 27 26 BUN 12 14 Creatinine 0.5 0.6 Glucose 106 172 H Calcium 9.8 9.6 Liver Function 07/04/23 Range/Units 18:45 Total Bilirubin 0.2 (0.15-1.2) mg/dL AST 17 (0-32) U/L ALT 9 (0-33) U/L Alkaline Phosphatase 132 H (35-105) U/L Albumin 4.4 (3.5-5.2) g/dL Urine 07/05/23 Range/Units 10:48 Urine Color Straw (Yellow) Urine Appearance Clear (CLEAR) Urine pH 7 (5-7) Ur Specific [place] 1.010 (1.005-1.030) Urine Protein Neg (Negative) Urine Glucose (UA) Norm (Normal) Urine Ketones Negative (Negative) Urine Nitrate Negative (Negative) Urine Bilirubin Neg (Negative) Ur Leukocyte Esterase Negative (Negative) Urine RBC None (0-2) /hpf Urine WBC None (0-5) /hpf Blood Bank 07/04/23 19:16 Blood Type AB Negative Rho(D) Type Rh negative Antibody Screen Negative Coags 07/04/23 18:45 PT 12.20 INR 0.88 Cardiac Studies: 2 No Data to Display
[2023-07-05] MEDS: clindamycin 600 MG/50 ML PREMIX 100 MG IV (13:48)
--- NOTE | 2023-07-05 14:54 | W.PM.BPON ---
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
--- NOTE | 2023-07-05 14:56 | PM.OP ---
Operative Report Date of procedure: July 05, 2023 Surgeon: Eric Quick DO Procedure: Preoperative diagnosis: Right greater trochanteric femur fracture with intertrochanteric extension post-op diagnosis: Same Procedure done: Right intertrochanteric femur fracture ORIF with cephalomedullary nail Implants: Sofía gamma nail short 11 mm x 180 mm x 130 degree Lag screw 10.5 mm x 95?mm Distal locking screw 5 mm x 35 mm Surgeon: Eric Quick DO Estimated blood loss: 50 mm IV fluids: See anesthesia?record Urine output: See anesthesia?record Complications: See operative?report Findings: See operative?report narrative Condition: stable Disposition: Floor Brief History: Patient sustained a fall and was found to have a?right greater trochanteric femur fracture. This was 2 weeks ago she has had persistent pain and inability to bear weight. She presented to the emergency department was appropriately worked up MRI demonstrated intertrochanteric extension fracture pattern talked about treatment options. At this point time Pt?was admitted by the hospitalist team and orthopedics was consulted.??Refer to consult note for detailed HPI.? We talked about treatment options as far as nonoperative and operative intervention.?Recommend?Right hip?trochanteric femur nail.? At this point time patient would like to pursue surgical intervention for benefits of pain control and earlier mobilization.?? Patient understands the ins and outs of procedure, the?risk benefits complication alternatives of surgical nonsurgical treatment options.? Understanding?risk of surgery pt?agrees to proceed with surgical intervention all questions answered.? Consent obtained. Procedure: Patient seen evaluated in the preoperative holding area.? Consent was obtained.? Correct extremity was then marked.? Once cleared by anesthesia and the hospitalist team patient was taken back to the operative suite.? Patient underwent anesthesia per the anesthesia department.? Once appropriately anesthetized patient was placed on a fracture [place] table.? Patient was appropriately secured to the bed.? All bony prominences were well-padded.? At this point time patient?received appropriate preoperative antibiotics.? Final timeout was performed.? Prior to beginning surgery a standard closed?reduction maneuver was placed on the [place] table and large C-arm was brought in.? After performing a closed?reduction maneuver there was able to achieve satisfactory?reduction of?right intertrochanteric femur fracture.? Fracture site did not extend into the subtrochanteric?region as?result plan was for a short nail.?? This point time the?right lower extremity was then prepped and draped in standard orthopedic fashion. A standard longitudinal incision was made just proximal to the greater?trochanter?roughly 4 cm in length sharp scalpel vision was made through skin and subcutaneous tissue.? I then utilized a blunt Hansen to split? fascia and mobilized directly down to the greater?trochanter.? I then inserted my starting guidewire which was placed appropriate starting position the tip of the greater?trochanter.? This was advanced in AP and lateral films to be in center center position and advanced to the level lesser?trochanter.? This was confirmed to be in center center position on AP and lateral imaging.? Once this was done I then introduced my opening?reamer which was then subsequently guide pin?removed.? I selected a 11 mm x 180 mm x 130 degree. At this point time the nail was then loaded onto the Orlebar Brown gamma?trochanteric nail guide.? This was placed within the canal and confirmed with XR and the setscrew was then gently placed not locked.? The nail was then impacted to appropriate depth .? At this point time I then inserted my lag screw guide and subsequently made a small incision through skin and subcutaneous tissue splitting the IT band longitudinally and the guide was placed directly onto bone.? Next I then subsequently placed the guidewire in center center position in the head with an appropriate tip to apex distance this was confirmed with multiple orthogonal images.? Once I was satisfied with my planned lag screw placement I then measured which was?95?mm.? I then set my cannulated drill and subsequently?reamed this into the head at appropriate depth.? I then had my?rep open the 10.5 mm x 95 mm lag screw which was then opened on the back table and subsequently screwed into place over my cannulated drill guide.? This was placed with excellent tip to apex distance.? Next I then utilized the compressing device and subsequently compressed my fracture after I let off traction.? This had excellent fracture compression and opposition and closing down to my fracture line.? Next I then locked the nail by locking my setscrew.? This point time the guidewire as well as the sleeve was then?removed.? Next I plan for statically locking the nail distally.? This triple sleeve was then placed a small stab incision was made blunt dissection directly down to bone and the guide sleeve was placed and locked directly onto the bone.? I then inserted the drill bit and subsequently drilled bicortically measured appropriate length screw and then placed a 35?mm distal interlocking screw and had excellent fixation was appropriate length.? This point time is completed my construct I?remove the outer jig and took final images of AP and lateral of the?right intertrochanteric femur fracture which showed stable?reduction and stable fixation.? Incision was then thoroughly irrigated.? Hemostasis was maintained with electrocautery.? I then once again thoroughly irrigated the incisions and then subsequently closed in layered fashion of 0 Vicryl 2-0 Vicryl and geoffrey.? Silverlon dressings applied.? Patient was then awakened from anesthesia transported onto the hospital bed and taken to PACU in stable condition.? Patient tolerated procedure without complications. Disposition: Patient taken to PACU in stable condition.? Postoperatively,? Patient to?receive appropriate discharge instructions as well as pain medication DVT prophylaxis postoperatively.? Patient?will be allowed weightbearing as tolerated?right lower extremity.? Will?receive appropriate postoperative antibiotics, PT/OT.? Patient to follow-up in the orthopedic office in 2 weeks.? Patients family understands and agrees with current plan.? All questions answered.
--- NOTE | 2023-07-05 15:10 | ANE.PACU2 ---
Inpatient post-anesthesia follow up: Airway intact: Yes Vital signs: Temperature 98.2 F Pulse Rate 84 Respiratory Rate 17 Blood Pressure 154/90 Pulse Oximetry 93 Oxygen Delivery Me thod Room Air Oxygen Flow Rate 6 Fraction of Inspir ed Oxygen Hydration adequate: Yes Nausea and vomiting: No Pain level: 2 Mental status: Baseline
--- NOTE | 2023-07-05 15:25 | XRR_ITS ---
PROCEDURE INFORMATION: Exam: XR Right Hip Exam date and time: 07/05/2023 2:36 PM Age: 73 years old Clinical indication: Prior surgery; Surgery date: Post-operative (0-2 days); Patient HX: Post op RT tfn TECHNIQUE: Imaging protocol: Radiologic exam of the right hip. Views: 1 view hip with pelvis when performed. COMPARISON: OT XR hip RT 2-3V wo/w pel* [id number] 07/05/2023 1:44 PM FINDINGS: Bones/joints: Hardware fixation right intertrochanteric fracture. Alignment appears anatomical. Bone mineralization is normal. Soft tissues: Soft tissue air laterally from immediate postoperative changes noted. XR/XR hip RT 2-3V wo/w pel* [id number] IMPRESSION: Hardware fixation right intertrochanteric fracture.
[2023-07-05] MEDS: chlorhexidine gluconate 0.12% Btl 473 mL 30 ML MUCOUS MEM ×2 (17:47→21:22)
[2023-07-05] MEDS: mupirocin oint 22 gm 1 APPLIC NASAL (17:47)
[2023-07-05] MEDS: iron polysaccharide complex 150 mg Capsule PO (17:47)
[2023-07-05] MEDS: calcium carb-vit d 600mg/400unit 1 Tablet 1 EACH PO (17:47)
[2023-07-05] MEDS: docusate sodium 100 mg Capsule PO (17:47)
[2023-07-05] MEDS: ondansetron 2 mg/ML SDV 2 mL 4 MG IVP (20:16)
[2023-07-05] MEDS: tranexamic acid 1,000 MG/100 ML PREMIX 600 MG IV (21:19)
[2023-07-05] MEDS: sennosides 8.6 mg Tablet 17.1999999999999993 MG PO (21:22)
[2023-07-05] MEDS: clindamycin 900 MG/50 ML PREMIX 100 MG IV (22:18)
[2023-07-05] MEDS: hyDRALAzine 20 mg/mL INJ 1 mL 10 MG IVP (22:19)
[2023-07-06 03:08] LABS: Basophils % 0.2 %; Hematocrit 42.3 % (36-47); Lymphocytes % 8.4 %; Mean Corpuscular HGB Conc 33.6 g/dL (30-55); Mean Corpuscular Hemoglobin 31.8 pg (27-33); Mean Corpuscular Volume 94.8 fl (85-98); Mean Platelet Volume 9.4 fL (7.4-10.4); Monocytes # 0.5 10^3/uL (0.2-0.9); Monocytes % 4.1 %; Neutrophils # 10.08 10^3/uL (1.8-7.7); Neutrophils % 86.9 %; Nucleated Red Blood Cells % 0 %; Platelet Count 377 10^3/cmm (157-399); Red Blood Count 4.46 10^6/uL (3.85-5.65); Red Cell Distribution Width 13.3 % (12.1-15.1); White Blood Count 11.59 10^3/uL (3.29-11.43)
[2023-07-06] MEDS: ondansetron 2 mg/ML SDV 2 mL 4 MG IVP (03:13)
[2023-07-06] MEDS: enoxaparin 30 mg/0.3 mL Syringe SUBCUT (03:24)
[2023-07-06 03:26] LABS: Anion Gap 15.5 (5-19); Blood Urea Nitrogen 15 mg/dL (8-23); Calcium 9.1 mg/dL (8.5-10.5); Carbon Dioxide 25 mmol/L (22-29); Chloride 102 mmol/L (98-107); Creatinine Clr Calc Pharmacy 55.5446; Glucose 211 mg/dL (65-115); Osmolality Calculated 293 mOsm/kg (285-295); Potassium 4.5 mmol/L (3.5-5.1); Sodium 138 mmol/L (136-145)
[2023-07-06 03:27] LABS: Blood Urea Nitrogen 15 mg/dL (8-23); Calcium 9.2 mg/dL (8.5-10.5); Carbon Dioxide 20 mmol/L (22-29); Chloride 102 mmol/L (98-107); Creatinine Clr Calc Pharmacy 55.5446; Glucose 185 mg/dL (65-115); Phosphorus 4.2 mg/dL (2.5-4.5); Sodium 136 mmol/L (136-145)
[2023-07-06 03:34] LABS: Anion Gap 18.9 (5-19); Potassium 4.9 mmol/L (3.5-5.1)
[2023-07-06 03:40] VITALS: BP 156/103; PULSE 90; RESP 16; TEMP 36.1; O2SAT 97
[2023-07-06] MEDS: clindamycin 900 MG/50 ML PREMIX 100 MG IV ×2 (05:45→13:49)
[2023-07-06 06:18] VITALS: BMI 21.3
[2023-07-06 07:48] VITALS: BP 161/82; PULSE 86; RESP 16; TEMP 36.7; O2SAT 96
[2023-07-06] MEDS: mupirocin oint 22 gm 1 APPLIC NASAL (08:33)
[2023-07-06] MEDS: multivitamin therapeutic Tablet 1 TAB PO (08:33)
[2023-07-06] MEDS: iron polysaccharide complex 150 mg Capsule PO (08:33)
[2023-07-06] MEDS: calcium carb-vit d 600mg/400unit 1 Tablet 1 EACH PO (08:33)
[2023-07-06] MEDS: docusate sodium 100 mg Capsule PO (08:33)
[2023-07-06] MEDS: chlorhexidine gluconate 0.12% Btl 473 mL 30 ML MUCOUS MEM ×2 (08:34→13:00)
--- NOTE | 2023-07-06 08:44 | P.PN_ITS ---
Subjective 2 Subjective: No acute events overnight Patient seen at her bedside and and has no new complaints today, pain is controlled. Vitals/I&O/Wt Last Vital Signs Temp 98.0 F 07/06/23 07:48 Pulse 86 07/06/23 07:48 Resp 16 07/06/23 07:48 BP 161/82 07/06/23 07:48 Pulse Ox 96 07/06/23 07:48 O2 Del Method Room Air 07/06/23 07:48 O2 Flow Rate 6 07/05/23 14:35 07/05/23 07/06/23 07/06/23 22:59 06:59 14:59 Intake Total 1520 / 1570 270 / 1840 240 / 240 Output Total 1350 / 1700 450 / 2150 Balance 170 / -130 -180 / -310 240 / 240 Weight last 48 hrs Weight 56.382 kg Weight 56.331 kg Weight 56.744 kg Weight 54.431 kg Physical Exam 2 Const: COMMON NORMALS: no acute distress, patient oriented x3 and alert HENMT: COMMON NORMALS: moist oral mucous membranes and oropharynx normal Eye: COMMON NORMALS: Equal, round and reactive pupils present, EOMs intact bilaterally, conjunctivae normal and no scleral icterus CONJUNCTIVA: Yes conjunctivae normal PUPIL: Yes Equal, round and reactive pupils present Neck/C-Spine: COMMON NORMALS: full ROM, no lymphadenopathy and no JVD Chest: COMMONS NORMALS: normal inspection of the chest Resp: COMMON NORMALS: normal respiratory effort and clear to auscultation bilaterally AUSCULTATION: clear to auscultation bilaterally OTHER: No wheezes or crcakles Cardio: COMMON NORMALS: no JVD, regular rate, regular rhythm, S1 normal heart sound present, S2 normal heart sound present, No gallops present (Cardio), No clicks present (Cardio), No murmurs present (Cardio), No rub (Cardio) and Peripheral pulses 2+ throughout RATE: regular rate RHYTHM: regular rhythm HEART SOUNDS: S1 normal heart sound present and S2 normal heart sound present PERIPHERAL PULSES: Peripheral pulses 2+ throughout GI: COMMON NORMALS: Normal to inspection, nondistended, normoactive bowel sounds present, Soft to palpation and non-tender PALPATION: Yes Soft to palpation Extremity: COMMON NORMALS: normal to inspection and no pedal edema N ARRATIVE EXTREMITY EXAM: Further exam limited due to known fracture Neuro: COMMON NORMALS: patient oriented x3 SENSORIUM/ORIENTATION: Yes alert OTHER: No gross focal deficits Urinary Catheter Management: Bedolla: Cath Placed During This Visit: yes, but has since been removed by the nurse Reason for Continuing Indwelling Catheter: Decision to DC Catheter Urinary Catheter Date of Insertion: 07/05/23 Urinary Catheter Time of Insertion: 13:40 Date Urinary Catheter Removed: 07/06/23 Time Urinary Catheter Discontinued: 03:43 Data 07/06/23 02:31 07/06/23 02:31 A&P Assessment and plan (1) Closed intertrochanteric fracture of right hip: -Due to Fall -Patient is s/p surgical fixation. Procedure tolerated -Ct supportive care, pain medications -PT/OT evaluation for appropriate disposition -DVT prophylaxis Qualifiers: Encounter type: initial encounter Fracture alignment: displaced Qualified Code(s): S72.141A - Displaced intertrochanteric fracture of right femur, initial encounter for closed fracture (2) Tobacco use disorder: -Ct to encourage cessation (3) Leukocytosis: - Thought to be stress induced -No signs of an active ongoing infectious process (4) Elevated alkaline phosphatase level: - likely secondary to to bone fracture -Trend Plan #Elevated Blood Pressure -Patient does not have a history of HTN . She reports that her BP is usually elevated when she is in the hospital or at the doctor's office -Will monitor for now -Start amlodipine as appropriate VTE ppx - enoxaparin Attestations 2 Medical Necessity Statement*: Patient to continue inpatient care for post surgical care , pain control, and physical therapy evaluation Coding Level of Care Code Acute Code for Chg Fwd Diagnoses Closed intertrochanteric fracture of right hip S72.141A Encounter type: initial encounter Fracture alignment: displaced Tobacco use disorder F17.200 Leukocytosis D72.829 Elevated alkaline phosphatase level R74.8
--- NOTE | 2023-07-06 08:48 | PM.PN ---
Subjective Subjective: Patient seen and examined this morning she is doing extremely well already been up 3 times walking with therapy she states she has no pain she is ready for discharge today. Vitals/I&O/Wt Last Vital Signs Temp 98.0 F 07/06/23 07:48 Pulse 86 07/06/23 07:48 Resp 16 07/06/23 07:48 BP 161/82 07/06/23 07:48 Pulse Ox 96 07/06/23 07:48 O2 Del Method Room Air 07/06/23 07:48 O2 Flow Rate 6 07/05/23 14:35 07/05/23 07/06/23 07/06/23 22:59 06:59 14:59 Intake Total 1520 / 1570 270 / 1840 240 / 240 Output Total 1350 / 1700 450 / 2150 Balance 170 / -130 -180 / -310 240 / 240 Weight last 48 hrs Weight 124 lb 4.8 oz Weight 124 lb 3 oz Weight 125 lb 1.6 oz Weight 120 lb Physical Exam Narrative: Examination of the right hip dressings on in place clean dry and intact patient's and is able to wiggle toes. No pain with logroll examination minimal postoperative swelling toes warm well-perfusedTo the right hip. Compartments are soft and compressible. Urinary Catheter Management: Bed[place]: Cath Placed During This Visit: yes, but has since been removed by the nurse Reason for Continuing Indwelling Catheter: Decision to DC Catheter Urinary Catheter Date of Insertion: 07/05/23 Urinary Catheter Time of Insertion: 13:40 Date Urinary Catheter Removed: 07/06/23 Time Urinary Catheter Discontinued: 03:43 Data 07/06/23 02:31 07/06/23 02:31 Xray Ortho: My impression: X-rays multiple views of the right hip reviewed and personally interpreted by myself demonstrating a interval right hip trochanteric femur nail with stable fixation good alignment positioning no evidence of periprosthetic fracture or hardware failure or complications. A&P Assessment and plan (1) Closed intertrochanteric fracture of right hip: Qualifiers: Encounter type: initial encounter Fracture alignment: displaced Qualified Code(s): S72.141A - Displaced intertrochanteric fracture of right femur, initial encounter for closed fracture Plan Pain control X-rays reviewed Labs reviewed Ice as needed Weight-bear as tolerate right lower extremity Complete postoperative antibiotics DVT prophylaxis?[facility] Internal medicine on board as primary Change dressing as needed leave Silverlon on for 7 days unless becomes saturated then changed for new Silver[place] PT/OT patient stable for discharge from orthopedic standpoint. Orthopedic surgery team will sign off patient at this time follow peripherally. Appropriate discharge structure as well as pain medication DVT prophylaxis are in patient's chart. Patient to follow-up with me in the office in 2 weeks. If there is any question pertaining patient care please feel free to contact orthopedics on-call. Otherwise patient is stable from orthopedic standpoint to discharge today. Attestations Medical Necessity Statement*: Ongoing care status post right hip trochanteric femur nail Coding Level of Care Code Acute Code for Chg Fwd Diagnoses Closed intertrochanteric fracture of right hip S72.141A Encounter type: initial encounter Fracture alignment: displaced
[2023-07-06 11:08] VITALS: BP 159/81; PULSE 81; RESP 16; TEMP 37; O2SAT 97
--- NOTE | 2023-07-06 15:03 | P.DS_ITS ---
Discharge Providers Date of Admission: 07/04/23 20:18 Date of Discharge: July 06, 2023 Attending Provider at Admission: Garry Duncan MD Attending Provider at Discharge: Senait Ness MD Primary Care Provider: Maryuri Isbell DO Diagnoses at Discharge Discharge Diagnosis (1) Closed intertrochanteric fracture of right hip: Status: Acute Qualifiers: Encounter type: initial encounter Fracture alignment: displaced Qualified Code(s): S72.141A - Displaced intertrochanteric fracture of right femur, initial encounter for closed fracture Reason for Visit Reason for Visit: sent by Jose A Quick hip pain Hospital Course Hospital Course In summary, Ms Sharyn Munoz is a 73 year old woman who presented for further evaluation right hip pain after a mechanical fall. In the ED, right hip CT showed comminuted intertrochanteric fracture. She was admitted for further evaluation and management. She was evaluated by orthopedic surgery and had surgical fixation done. Procedure was tolerated . Patient was discharged home and she will follow with Orthopedic surgery outpatient. Physical Exam Const: COMMON NORMALS: no acute distress, patient oriented x3 and alert HENMT: COMMON NORMALS: normocephalic, atraumatic, external ears normal, Normal external nose present, moist oral mucous membranes and oropharynx normal HEAD & SCALP: normocephalic and atraumatic NOSE: Normal external nose present EXTERNAL EAR: Yes external ears normal Eye: COMMON NORMALS: Equal, round and reactive pupils present, EOMs intact bilaterally, conjunctivae normal and no scleral icterus CONJUNCTIVA: Yes conjunctivae normal PUPIL: Yes Equal, round and reactive pupils present Neck/C-Spine: COMMON NORMALS: full ROM, no lymphadenopathy and no JVD Chest: COMMONS NORMALS: normal inspection of the chest Resp: COMMON NORMALS: normal respiratory effort and clear to auscultation bilaterally AUSCULTATION: clear to auscultation bilaterally OTHER: No wheezes or crcakles Cardio: COMMON NORMALS: no JVD, regular rate, regular rhythm, S1 normal heart sound present, S2 normal heart sound present, No gallops present (Cardio), No clicks present (Cardio), No murmurs present (Cardio), No rub (Cardio) and Peripheral pulses 2+ throughout RATE: regular rate RHYTHM: regular rhythm HEART SOUNDS: S1 normal heart sound present and S2 normal heart sound present PERIPHERAL PULSES: Peripheral pulses 2+ throughout GI: COMMON NORMALS: Normal to inspection, nondistended, normoactive bowel sounds present, Soft to palpation and non-tender PALPATION: Yes Soft to palpation Extremity: COMMON NORMALS: normal to inspection and no pedal edema NARRATIVE EXTREMITY EXAM: Further exam limited due to known fracture Neuro: COMMON NORMALS: patient oriented x3 SENSORIUM/ORIENTATION: Yes alert OTHER: No gross focal deficits Urinary Catheter Management: Bedolla: Cath Placed During This Visit: yes, but has since been removed by the nurse Reason for Continuing Indwelling Catheter: Decision to DC Catheter Urinary Catheter Date of Insertion: 07/05/23 Urinary Catheter Time of Insertion: 13:40 Date Urinary Catheter Removed: 07/06/23 Time Urinary Catheter Discontinued: 03:43 Discharge Data Studies Completed and Pending Completed Studies During Hospitalization Category Date Time Status CT hip RT wo con* [id number] Stat Cat Scan 07/04/23 14:13 Completed XR chest 1V portable [id number] Stat Exams 07/04/23 18:28 Completed XR femur RT min 2V* [id number] Stat Exams 07/05/23 12:49 Completed XR hip RT 2-3V wo/w pel* [id number] Routine Exams 07/05/23 15:25 Completed MR hip RT wo con* [id number] Stat MRI 07/04/23 16:47 Completed Pending at discharge Category Date Time Status C-arm Fluoroscopy [id number] Routine Exams 07/04/23 18:25 Taken XR hip RT 2-3V wo/w pel* [id number] Routine Exams 07/05/23 13:00 Taken Basic Metabolic Panel AM LABS Lab 07/07/23 04:00 Ordered Basic Metabolic Panel AM LABS Lab 07/08/23 04:00 Ordered CBC Auto Diff [Complete Blood Count w/Auto] AM LABS Lab 07/07/23 04:00 Ordered Renal Function Panel AM LABS Lab 07/07/23 04:00 Ordered Radiology Impressions Hip MRI 07/04/23 16:47 IMPRESSION: 1. Minimally displaced isolated fracture of the greater trochanter right femur with 2 mm fluid-filled gap. 2. In addition to the isolated fracture of the greater trochanter, there is near-complete/microtrabecular fracture involving the intertrochanteric femur with sparing the medial 1 cm without step-off of the medial cortex. Fracture line extends to the base of the lesser trochanter. Chest X-Ray 07/04/23 18:28 IMPRESSION: No acute findings. Femur X-Ray 07/05/23 12:49 IMPRESSION: Comminuted fracture of the greater trochanter with proximal intertrochanteric area extension. Recent MRI showed microtrabecular fracture involving intertrochanteric region, not well visualized on radiograph. Hip/Pelvis X-Ray 07/05/23 15:25 IMPRESSION: Hardware fixation right intertrochanteric fracture. Laboratory Results WBC 11.59 10^3/uL (3.29-11.43) H 07/06/23 02:31 RBC 4.46 10^6/uL (3.85-5.65) 07/06/23 02:31 Hgb 14.20 g/dL (11.27-16.99) 07/06/23 02:31 Hct 42.3 % (36-47) 07/06/23 02:31 MCV 94.8 fl (85-98) 07/06/23 02:31 MCH 31.8 pg (27-33) 07/06/23 02:31 MCHC 33.6 g/dL (30-55) 07/06/23 02:31 RDW 13.3 % (12.1-15.1) 07/06/23 02:31 Plt Count 377 10^3/cmm (157-399) 07/06/23 02:31 MPV 9.4 fL (7.4-10.4) 07/06/23 02:31 Neut % (Auto) 86.9 % 07/06/23 02:31 Lymph % (Auto) 8.4 % 07/06/23 02:31 [place] % (Auto) 4.1 % 07/06/23 02:31 Eos % (Auto) 0.0 % 07/06/23 02:31 Baso % (Auto) 0.2 % 07/06/23 02:31 Neut # (Auto) 10.08 10^3/uL (1.8-7.7) H 07/06/23 02:31 Lymph # (Auto) 1.0 10^3/uL (0.8-4.8) 07/06/23 02:31 [place] # (Auto) 0.5 10^3/uL (0.2-0.9) 07/06/23 02:31 Eos # (Auto) 0.0 10^3/uL (0.0-0.8) 07/06/23 02:31 Baso # (Auto) 0.0 10^3/uL (0.0-0.1) 07/06/23 02:31 Nucleated RBC % (auto) 0 % 07/06/23 02:31 Nucleated RBCs # 0.0 /100WBC 07/06/23 02:31 PT 12.20 SECONDS (12.1-14.9) 07/04/23 18:45 INR 0.88 (0.8-1.2) 07/04/23 18:45 Sodium 136 mmol/L (136-145) 07/06/23 02:31 Sodium 138 mmol/L (136-145) 07/06/23 02:31 Potassium 4.5 mmol/L (3.5-5.1) 07/06/23 02:31 Potassium 4.9 mmol/L (3.5-5.1) 07/06/23 02:31 Chloride 102 mmol/L (98-107) 07/06/23 02:31 Chloride 102 mmol/L (98-107) 07/06/23 02:31 Carbon Dioxide 20 mmol/L (22-29) L 07/06/23 02:31 Carbon Dioxide 25 mmol/L (22-29) 07/06/23 02:31 Anion Gap 15.5 (5-19) 07/06/23 02:31 Anion Gap 18.9 (5-19) 07/06/23 02:31 BUN 15 mg/dL (8-23) 07/06/23 02:31 BUN 15 mg/dL (8-23) 07/06/23 02:31 Creatinine 0.6 mg/dL (0.5-0.9) 07/06/23 02:31 Creatinine 0.6 mg/dL (0.5-0.9) 07/06/23 02:31 GFR Calculation Not Reportable 07/06/23 02:31 GFR Calculation Not Reportable 07/06/23 02:31 Glucose 185 mg/dL (65-115) H 07/06/23 02:31 Glucose 211 mg/dL (65-115) H 07/06/23 02:31 Calculated Osmolality 293 mOsm/kg (285-295) 07/06/23 02:31 Calcium 9.1 mg/dL (8.5-10.5) 07/06/23 02:31 Calcium 9.2 mg/dL (8.5-10.5) 07/06/23 02:31 Phosphorus 4.2 mg/dL (2.5-4.5) 07/06/23 02:31 Magnesium 2.2 mg/dL (1.7-2.3) 07/05/23 03:18 Total Bilirubin 0.2 mg/dL (0.15-1.2) 07/04/23 18:45 AST 17 U/L (0-32) 07/04/23 18:45 ALT 9 U/L (0-33) 07/04/23 18:45 Alkaline Phosphatase 132 U/L (35-105) H 07/04/23 18:45 Total Protein 7.4 g/dL (6.6-8.7) 07/04/23 18:45 Albumin 4.0 g/dL (3.5-5.2) 07/06/23 02:31 Globulin 3.0 g/dL (1.3-4.6) 07/04/23 18:45 Urine Color Straw (Yellow) 07/05/23 10:48 Urine Appearance Clear (CLEAR) 07/05/23 10:48 Urine pH 7 (5-7) 07/05/23 10:48 Ur Specific [place] 1.010 (1.005-1.030) 07/05/23 10:48 Urine Protein Neg (Negative) 07/05/23 10:48 Urine Glucose (UA) Norm (Normal) 07/05/23 10:48 Urine Ketones Negative (Negative) 07/05/23 10:48 Urine Blood Neg (Negative) 07/05/23 10:48 Urine Nitrate Negative (Negative) 07/05/23 10:48 Urine Bilirubin Neg (Negative) 07/05/23 10:48 Urine Urobilinogen Norm mg/dL (Negative) 07/05/23 10:48 Ur Leukocyte Esterase Negative (Negative) 07/05/23 10:48 Urine RBC None /hpf (0-2) 07/05/23 10:48 Urine WBC None /hpf (0-5) 07/05/23 10:48 Ur Squamous Epith Cells Rare /hpf (0-5) 07/05/23 10:48 Calcium Oxalate Crystal 0-4 /hpf H 07/05/23 10:48 Amorphous Sediment Trace /hpf 04/13/24 10:48 Urine Bacteria Trace /hpf (NONE) 07/05/23 10:48 Blood Type AB Negative 07/04/23 19:16 Rho(D) Type Rh negative 07/04/23 19:16 Antibody Screen Negative 07/04/23 19:16 Vitals Last Vital Signs Temp 98.6 F 07/06/23 11:08 Pulse 81 07/06/23 11:08 Resp 16 07/06/23 11:08 BP 159/81 07/06/23 11:08 Pulse Ox 97 07/06/23 11:08 O2 Del Method Room Air 07/06/23 11:08 O2 Flow Rate 6 07/05/23 14:35 Discharge Plan Discharge Patient Disposition: Home Condition: Stable Prescriptions: New tramadol 50 mg tablet 50 mg PO Q6H PRN (Reason: pain) 7 Days Qty: 28 0RF ondansetron 4 mg tablet,disintegrating 4 mg PO Q8H 3 Days Qty: 9 0RF Lovenox 30 mg/0.3 mL syringe 30 mg SUBCUT DAILY 35 Days Qty: 10.5 0RF Calcium 600 + D(3) 600 mg-10 mcg (400 unit) tablet 1 tab PO DAILY 30 Days Qty: 30 0RF Continued [employer] 45-3.75-50 mg Tablet,Chewable 1 tab PO DAILY Discontinued ibuprofen 200 mg Capsule 200 mg PO Q4H PRN (Reason: Pain) Discharge Orders: Discharge Order (Routine); Ordered 07/06/23 Ordered By: Senait Ness Referrals: Maryuri Isbell DO [Primary Care Provider] - (We have notified your physician's clinic of the need for a follow-up appointment to be scheduled. If you have not heard from them within the next 2 business days, please call them directly. ) Eric Quick DO [Physician] - (We have notified your physician's clinic of the need for a follow-up appointment to be scheduled. If you have not heard from them within the next 2 business days, please call them directly. ) Discharge Diet: Advance as tolerated Discharge Activity: Increase activity as tolerated, Use walker/crutches as instructed and As per PT/OT instructions Patient Instructions: Tramadol (By mouth), Ondansetron (By mouth), Enoxaparin (By injection), Opioid Safety Activity Restrictions/Additional Instructions: Postop Troch Nail Orthopedic discharge instructions: Weightbearing as tolerated to the operative extremity Ice as needed for pain and swelling Encourage knee and hip range of motion as tolerated PT/OT Take pain medication as prescribed Take antinausea medication as needed Supplement with Citracal vitamin D for bone health and healing Take Lovenox (blood thinner) as prescribed for blood clot prevention Take Colace as needed for constipation Leave Silverlon dressings on and in place for 7 days. After this they may be removed you may shower/rinse incisions with warm soapy water, pat dry redress with a dry dressing. Okay to sponge bath/shower with Silverlon dressings as they should be waterproof however if they do get saturated or wet please take these off dry the incision and redressed with a new dry sterile bandage. Follow-up in the orthopedic office with orthopedics/Dr. Quick in rougly 2 weeks for repeat x-rays and incision check/staple removal Contact the office for any questions or concerns (i.e. increasing redness and drainage around the incision, fevers, or chills, or severe worsening in pain/change in symptoms) Discharge Attestations Time Spent in Discharge Care*: greater than 30 min Quality Metrics Clinical Quality Measures [ No reported AMI, CVA or VTE this stay] Coding Level of Care Code Acute Code for Chg Fwd Diagnoses Closed intertrochanteric fracture of right hip S72.141A Encounter type: initial encounter Fracture alignment: displaced
--- NOTE | 2023-07-06 15:17 | P.DS_ITS ---
Discharge Providers Date of Admission: 07/04/23 20:18 Date of Discharge: July 06, 2023 Attending Provider at Admission: Garry Duncan MD Attending Provider at Discharge: Senait Ness MD Primary Care Provider: Maryuri Isbell DO Diagnoses at Discharge Discharge Diagnosis (1) Closed intertrochanteric fracture of right hip: Status: Acute Qualifiers: Encounter type: initial encounter Fracture alignment: displaced Qualified Code(s): S72.141A - Displaced intertrochanteric fracture of right femur, initial encounter for closed fracture Reason for Visit Reason for Visit: sent by Jose A Quick hip pain Hospital Course Hospital Course In summary, Ms Sharyn Munoz is a 73 year old woman who presented for further evaluation right hip pain after a mechanical fall. In the ED, right hip CT showed comminuted intertrochanteric fracture. She was admitted for further evaluation and management. She was evaluated by orthopedic surgery and had surgical fixation done. Procedure was tolerated . Patient was discharged home and she will follow with Orthopedic surgery outpatient. Physical Exam Const: COMMON NORMALS: no acute distress, patient oriented x3 and alert HENMT: COMMON NORMALS: normocephalic, atraumatic, external ears normal, Normal external nose present, moist oral mucous membranes and oropharynx normal HEAD & SCALP: normocephalic and atraumatic NOSE: Normal external nose present EXTERNAL EAR: Yes external ears normal Eye: COMMON NORMALS: Equal, round and reactive pupils present, EOMs intact bilaterally, conjunctivae normal and no scleral icterus CONJUNCTIVA: Yes conjunctivae normal PUPIL: Yes Equal, round and reactive pupils present Neck/C-Spine: COMMON NORMALS: full ROM, no lymphadenopathy and no JVD Chest: COMMONS NORMALS: normal inspection of the chest Resp: COMMON NORMALS: normal respiratory effort and clear to auscultation bilaterally AUSCULTATION: clear to auscultation bilaterally OTHER: No wheezes or crcakles Cardio: COMMON NORMALS: no JVD, regular rate, regular rhythm, S1 normal heart sound present, S2 normal heart sound present, No gallops present (Cardio), No clicks present (Cardio), No murmurs present (Cardio), No rub (Cardio) and Peripheral pulses 2+ throughout RATE: regular rate RHYTHM: regular rhythm HEART SOUNDS: S1 normal heart sound present and S2 normal heart sound present PERIPHERAL PULSES: Peripheral pulses 2+ throughout GI: COMMON NORMALS: Normal to inspection, nondistended, normoactive bowel sounds present, Soft to palpation and non-tender PALPATION: Yes Soft to palpation Extremity: COMMON NORMALS: normal to inspection and no pedal edema Neuro: COMMON NORMALS: patient oriented x3 SENSORIUM/ORIENTATION: Yes alert OTHER: No gross focal deficits Urinary Catheter Management: Bedolla: Cath Placed During This Visit: yes, but has since been removed by the nurse Reason for Continuing Indwelling Catheter: Decision to DC Catheter Urinary Catheter Date of Insertion: 07/05/23 Urinary Catheter Time of Insertion: 13:40 Date Urinary Catheter Removed: 07/06/23 Time Urinary Catheter Discontinued: 03:43 Discharge Data Studies Completed and Pending Completed Studies During Hospitalization Category Date Time Status CT hip RT wo con* [id number] Stat Cat Scan 07/04/23 14:13 Completed XR chest 1V portable [id number] Stat Exams 07/04/23 18:28 Completed XR femur RT min 2V* [id number] Stat Exams 07/05/23 12:49 Completed XR hip RT 2-3V wo/w pel* [id number] Routine Exams 07/05/23 15:25 Completed MR hip RT wo con* [id number] Stat MRI 07/04/23 16:47 Completed Pending at discharge Category Date Time Status C-arm Fluoroscopy [id number] Routine Exams 07/04/23 18:25 Taken XR hip RT 2-3V wo/w pel* [id number] Routine Exams 07/05/23 13:00 Taken Basic Metabolic Panel AM LABS Lab 07/07/23 04:00 Ordered Basic Metabolic Panel AM LABS Lab 07/08/23 04:00 Ordered CBC Auto Diff [Complete Blood Count w/Auto] AM LABS Lab 07/07/23 04:00 Ordered Renal Function Panel AM LABS Lab 07/07/23 04:00 Ordered Radiology Impressions Hip MRI 07/04/23 16:47 IMPRESSION: 1. Minimally displaced isolated fracture of the greater trochanter right femur with 2 mm fluid-filled gap. 2. In addition to the isolated fracture of the greater trochanter, there is near-complete/microtrabecular fracture involving the intertrochanteric femur with sparing the medial 1 cm without step-off of the medial cortex. Fracture line extends to the base of the lesser trochanter. Chest X-Ray 07/04/23 18:28 IMPRESSION: No acute findings. Femur X-Ray 07/05/23 12:49 IMPRESSION: Comminuted fracture of the greater trochanter with proximal intertrochanteric area extension. Recent MRI showed microtrabecular fracture involving intertrochanteric region, not well visualized on radiograph. Hip/Pelvis X-Ray 07/05/23 15:25 IMPRESSION: Hardware fixation right intertrochanteric fracture. Laboratory Results WBC 11.59 10^3/uL (3.29-11.43) H 07/06/23 02:31 RBC 4.46 10^6/uL (3.85-5.65) 07/06/23 02:31 Hgb 14.20 g/dL (11.27-16.99) 07/06/23 02:31 Hct 42.3 % (36-47) 07/06/23 02:31 MCV 94.8 fl (85-98) 07/06/23 02:31 MCH 31.8 pg (27-33) 07/06/23 02:31 MCHC 33.6 g/dL (30-55) 07/06/23 02:31 RDW 13.3 % (12.1-15.1) 07/06/23 02:31 Plt Count 377 10^3/cmm (157-399) 07/06/23 02:31 MPV 9.4 fL (7.4-10.4) 07/06/23 02:31 Neut % (Auto) 86.9 % 07/06/23 02:31 Lymph % (Auto) 8.4 % 07/06/23 02:31 [place] % (Auto) 4.1 % 07/06/23 02:31 Eos % (Auto) 0.0 % 07/06/23 02:31 Baso % (Auto) 0.2 % 07/06/23 02:31 Neut # (Auto) 10.08 10^3/uL (1.8-7.7) H 07/06/23 02:31 Lymph # (Auto) 1.0 10^3/uL (0.8-4.8) 07/06/23 02:31 [place] # (Auto) 0.5 10^3/uL (0.2-0.9) 07/06/23 02:31 Eos # (Auto) 0.0 10^3/uL (0.0-0.8) 07/06/23 02:31 Baso # (Auto) 0.0 10^3/uL (0.0-0.1) 07/06/23 02:31 Nucleated RBC % (auto) 0 % 07/06/23 02:31 Nucleated RBCs # 0.0 /100WBC 07/06/23 02:31 PT 12.20 SECONDS (12.1-14.9) 07/04/23 18:45 INR 0.88 (0.8-1.2) 07/04/23 18:45 Sodium 136 mmol/L (136-145) 07/06/23 02:31 Sodium 138 mmol/L (136-145) 07/06/23 02:31 Potassium 4.5 mmol/L (3.5-5.1) 07/06/23 02:31 Potassium 4.9 mmol/L (3.5-5.1) 07/06/23 02:31 Chloride 102 mmol/L (98-107) 07/06/23 02:31 Chloride 102 mmol/L (98-107) 07/06/23 02:31 Carbon Dioxide 20 mmol/L (22-29) L 07/06/23 02:31 Carbon Dioxide 25 mmol/L (22-29) 07/06/23 02:31 Anion Gap 15.5 (5-19) 07/06/23 02:31 Anion Gap 18.9 (5-19) 07/06/23 02:31 BUN 15 mg/dL (8-23) 07/06/23 02:31 BUN 15 mg/dL (8-23) 07/06/23 02:31 Creatinine 0.6 mg/dL (0.5-0.9) 07/06/23 02:31 Creatinine 0.6 mg/dL (0.5-0.9) 07/06/23 02:31 GFR Calculation Not Reportable 07/06/23 02:31 GFR Calculation Not Reportable 07/06/23 02:31 Glucose 185 mg/dL (65-115) H 07/06/23 02:31 Glucose 211 mg/dL (65-115) H 07/06/23 02:31 Calculated Osmolality 293 mOsm/kg (285-295) 07/06/23 02:31 Calcium 9.1 mg/dL (8.5-10.5) 07/06/23 02:31 Calcium 9.2 mg/dL (8.5-10.5) 07/06/23 02:31 Phosphorus 4.2 mg/dL (2.5-4.5) 07/06/23 02:31 Magnesium 2.2 mg/dL (1.7-2.3) 07/05/23 03:18 Total Bilirubin 0.2 mg/dL (0.15-1.2) 07/04/23 18:45 AST 17 U/L (0-32) 07/04/23 18:45 ALT 9 U/L (0-33) 07/04/23 18:45 Alkaline Phosphatase 132 U/L (35-105) H 07/04/23 18:45 Total Protein 7.4 g/dL (6.6-8.7) 07/04/23 18:45 Albumin 4.0 g/dL (3.5-5.2) 07/06/23 02:31 Globulin 3.0 g/dL (1.3-4.6) 07/04/23 18:45 Urine Color Straw (Yellow) 07/05/23 10:48 Urine Appearance Clear (CLEAR) 07/05/23 10:48 Urine pH 7 (5-7) 07/05/23 10:48 Ur Specific [place] 1.010 (1.005-1.030) 07/05/23 10:48 Urine Protein Neg (Negative) 07/05/23 10:48 Urine Glucose (UA) Norm (Normal) 07/05/23 10:48 Urine Ketones Negative (Negative) 07/05/23 10:48 Urine Blood Neg (Negative) 07/05/23 10:48 Urine Nitrate Negative (Negative) 07/05/23 10:48 Urine Bilirubin Neg (Negative) 07/05/23 10:48 Urine Urobilinogen Norm mg/dL (Negative) 07/05/23 10:48 Ur Leukocyte Esterase Negative (Negative) 07/05/23 10:48 Urine RBC None /hpf (0-2) 07/05/23 10:48 Urine WBC None /hpf (0-5) 07/05/23 10:48 Ur Squamous Epith Cells Rare /hpf (0-5) 07/05/23 10:48 Calcium Oxalate Crystal 0-4 /hpf H 07/05/23 10:48 Amorphous Sediment Trace /hpf 07/05/23 10:48 Urine Bacteria Trace /hpf (NONE) 07/05/23 10:48 Blood Type AB Negative 07/04/23 19:16 Rho(D) Type Rh negative 07/04/23 19:16 Antibody Screen Negative 07/04/23 19:16 Vitals Last Vital Signs Temp 98.6 F 07/06/23 11:08 Pulse 81 07/06/23 11:08 Resp 16 07/06/23 11:08 BP 159/81 07/06/23 11:08 Pulse Ox 97 07/06/23 11:08 O2 Del Method Room Air 07/06/23 11:08 O2 Flow Rate 6 07/05/23 14:35 Discharge Plan Discharge Patient Disposition: Home Condition: Stable Prescriptions: New tramadol 50 mg tablet 50 mg PO Q6H PRN (Reason: pain) 7 Days Qty: 28 0RF ondansetron 4 mg tablet,disintegrating 4 mg PO Q8H 3 Days Qty: 9 0RF Lovenox 30 mg/0.3 mL syringe 30 mg SUBCUT DAILY 35 Days Qty: 10.5 0RF Calcium 600 + D(3) 600 mg-10 mcg (400 unit) tablet 1 tab PO DAILY 30 Days Qty: 30 0RF Continued [employer] 45-3.75-50 mg Tablet,Chewable 1 tab PO DAILY Discontinued ibuprofen 200 mg Capsule 200 mg PO Q4H PRN (Reason: Pain) Discharge Orders: Discharge Order (Routine); Ordered 07/06/23 Ordered By: Senait Ness Referrals: Maryuri Isbell DO [Primary Care Provider] - (We have notified your physician's clinic of the need for a follow-up appointment to be scheduled. If you have not heard from them within the next 2 business days, please call them directly. ) Eric Quick DO [Physician] - (We have notified your physician's clinic of the need for a follow-up appointment to be scheduled. If you have not heard from them within the next 2 business days, please call them directly. ) Discharge Diet: Advance as tolerated Discharge Activity: Increase activity as tolerated, Use walker/crutches as instructed and As per PT/OT instructions Patient Instructions: Tramadol (By mouth), Ondansetron (By mouth), Enoxaparin (By injection), Opioid Safety Activity Restrictions/Additional Instructions: Postop Troch Nail Orthopedic discharge instructions: Weightbearing as tolerated to the operative extremity Ice as needed for pain and swelling Encourage knee and hip range of motion as tolerated PT/OT Take pain medication as prescribed Take antinausea medication as needed Supplement with Citracal vitamin D for bone health and healing Take Lovenox (blood thinner) as prescribed for blood clot prevention Take Colace as needed for constipation Leave Silver[place] dressings on and in place for 7 days. After this they may be removed you may shower/rinse incisions with warm soapy water, pat dry redress with a dry dressing. Okay to sponge bath/shower with [place] dressings as they should be waterproof however if they do get saturated or wet please take these off dry the incision and redressed with a new dry sterile bandage. Follow-up in the orthopedic office with orthopedics/Dr. Quick in rougly 2 weeks for repeat x-rays and incision check/staple removal Contact the office for any questions or concerns (i.e. increasing redness and drainage around the incision, fevers, or chills, or severe worsening in pain/change in symptoms) Discharge Attestations Time Spent in Discharge Care*: greater than 30 min Quality Metrics Clinical Quality Measures [ No reported AMI, CVA or VTE this stay] Coding Level of Care Code Acute Code for Chg Fwd Diagnoses Closed intertrochanteric fracture of right hip S72.141A Encounter type: initial encounter Fracture alignment: displaced
--- NOTE | 2023-07-07 14:12 | PC.SOCIAL ---
Faxed [facility] Pt was admitted late Friday evening & discharged Friday Afternoon. There was an order for CM to see pt for discharge planning. PT recommended HH vs Outpt Therapy. Wardrobe Assistant called pt at home. Discussed options with her. She said she would prefer HH. [employer] Link Provided. Choices made, 1) [facility] 2) [facility]. A choice letter filled out & scanned to Sujatha Riddle to be scanned into chart. Faxed referral to [facility] & notified Isra.
--- NOTE | 2023-07-08 08:21 | PC.SOCIAL ---
[facility] with [facility] said they are able to accept pt & will see pt on Friday. She said they will follow up with pt at home. No other needs voiced for Cm.
== END 2023-07-06 15:29 | disposition home or self-care (01) | DRG 482 ==
LOC: ER 19:59 → MEDSURG 20:19
PROVIDERS: Emergency Medicine; Student in an Organized Health Care Education/Training Program; Admitting Provider Internal Medicine; Emergency Provider Family Medicine; PCP Family Medicine; Visit Provider Student in an Organized Health Care Education/Training Program
PROC: 0QS636Z Reposition Right Upper Femur with Intramedullary Internal Fixation Device, Percutaneous Approach (ICD-10-PCS; CPT 27245; principal; 2023-07-05 13:00)
DX: S72.141A Displaced intertrochanteric fracture of right femur, initial encounter for closed fracture (principal); W19.XXXA Unspecified fall, initial encounter; Z72.0 Tobacco use; D72.829 Elevated white blood cell count, unspecified; R03.0 Elevated blood-pressure reading, without diagnosis of hypertension
CPT/HCPCS: 12345; 36415; 51702; 71045; 73502; 73552; 73700; 73721; 76000; 80048; 80053; 80069; 81001; 83735; 84100; 85025; 85610; 86850; 86900; 93005; 96365; 96372; 96375; 97110; 97116; 97161; 97165; 99285; C1713; J0360; J1100; J1650; J1885; J2270; J2405; J2704; J3010; J3490; J7799

== ENCOUNTER → 2023-07-21 14:40 | Outpatient (BNVA) | payer MEDICARE, SELFPAY | PROVIDERS: PCP Family Medicine; Visit Provider Family Medicine | DX: R73.9 Hyperglycemia, unspecified (principal); D72.829 Elevated white blood cell count, unspecified | CPT/HCPCS: 80053; 83036; 85025 ==

== ENCOUNTER → 2023-07-24 13:27 | Outpatient (BNVA) | payer MEDICARE, SELFPAY | PROVIDERS: PCP Family Medicine; Visit Provider Physician Assistant | DX: S72.141D Displaced intertrochanteric fracture of right femur, subsequent encounter for closed fracture with routine healing; X58.XXXD Exposure to other specified factors, subsequent encounter | CPT/HCPCS: 73502; 99024 ==

== ENCOUNTER 2023-07-25 10:39 | Outpatient (CLI) | payer MEDICARE, SELFPAY ==
--- NOTE | 2023-07-25 11:00 | MM_ITS ---
WS: [id number] BILATERAL 3D TOMOSYNTHESIS DIGITAL SCREENING MAMMOGRAPHY WITH CAD CLINICAL INFORMATION: screening HISTORY: Screening mammogram. No current complaints. COMPARISON: 2020 TECHNIQUE: Bilateral CC and MLO views. FINDINGS: Scattered fibroglandular densities bilaterally. No suspicious focal mass, asymmetry, calcifications, or architectural distortion. No evidence of malignancy. MM/[place] [id number] IMPRESSION: BI-RADS: 1-Negative FOLLOW UP: 1 Year Follow-up Recommend return to annual screening mammography.
== END 2023-07-25 10:40 | disposition home or self-care (01) ==
LOC: RAD 10:39
PROVIDERS: PCP Family Medicine; Visit Provider Family Medicine
DX: Z12.31 Encounter for screening mammogram for malignant neoplasm of breast (principal)
CPT/HCPCS: 77063; 77067

== ENCOUNTER 2023-08-20 09:41 | Outpatient (CLI) | payer MEDICARE, SELFPAY ==
--- NOTE | 2023-08-20 10:00 | CT_ITS ---
WS: [id number] LDCT LUNG CANCER SCREENING TECHNIQUE: Noncontrast CT of the chest with coronal and sagittal reformatted images. CLINICAL INFORMATION: screening COMPARISON: 2019 DLP: 49.71 mGy.cm DIvol: Mean CTDIvol: 0.90 (mGy) All CT scans at [facility] use at least one of these dose optimization techniques: automat ed exposure control; mA and/or kV adjustment per patient size (includes targeted exams where dose is matched to clinical indication); or iterative reconstruction. FINDINGS: Mild chronic emphysematous changes. No acute pulmonary infiltrates. 5 mm nodule LEFT upper lobe anteriorly appears new since 2019. 10 mm nodule LEFT lung apex also appears new compared to 2020 . This can be further evaluated with PET/CT. Normal caliber thoracic aorta. Mild aortic calcification. Coronary calcification. No mediastinal or hilar lymphadenopathy. No axillary lymphadenopathy. Cholecystectomy clips. Hepatic and splenic granu zandra. Normal GE junction. Stable thickening LEFT adrenal gland. RIGHT adrenal gland is normal. Thora cic curve. Mild thoracic kyphosis. CT/CT lung screening [id number] IMPRESSION: New solid suspicious 10 mm nodule LEFT lung apex. Recommend further evaluation with PET/CT. LUNG-RADS: 4A-Probably Suspicious FOLLOW UP: PET/CT recommended
== END 2023-08-20 09:42 | disposition home or self-care (01) ==
LOC: RAD 09:42
PROVIDERS: PCP Family Medicine; Visit Provider Family Medicine
DX: Z12.2 Encounter for screening for malignant neoplasm of respiratory organs (principal); F17.219 Nicotine dependence, cigarettes, with unspecified nicotine-induced disorders
CPT/HCPCS: 71271

== ENCOUNTER 2023-09-16 09:46 | Outpatient (CLI) | payer MEDICARE, SELFPAY ==
--- NOTE | 2023-09-16 10:00 | PETR_ITS ---
PROCEDURE INFORMATION: Exam: PET/CT Skull Base to Mid-thigh Exam date and time: 09/16/2023 10:26 AM Age: 73 years old Clinical indication: Abnormal findings; New lung nodule LABS AND CLINICAL REPORTS: Glucose: 110 mg/dl Treatment strategy for malignancy (PET staging): Initial Staging (PI) TECHNIQUE: Imaging protocol: Following at least four-hour fasting and following the injection of radiopharmaceutical, low dose CT images were obtained. Then, PET images were obtained. Attenuation corrected images were constructed using the CT scan. Fused images of PET and CT were reviewed. The standardized uptake values (SUV) reported below are maximum values within a region of interest, expressed in gm/ml. Exam includes orbital meatal line to mid-thigh. Radiopharmaceutical: 12.88 mCi F-18 FDG (Fluorodeoxyglucose), IV. Time of imaging post radiopharmaceutical administration: 53 minutes Injection site: Right antecubital COMPARISON: 1. CT hip RT wo con* [id number] 07/04/2023 3:[address] lung screening [id number] 08/20/2023 10:21 AM FINDINGS: Brain: Visualized brain has normal physiologic uptake. Pharynx: No abnormal uptake. Larynx: No abnormal uptake. Lungs, pleura and trachea: No abnormal uptake. 1 cm left apical nodule is non FDG avid with SUV max of 0.9. 5 mm left upper lobe/lingula nodule on axial image 87 of series 3 also shows no FDG avidity, but is below size threshold for sensitivity. Heart: Normal physiologic uptake. Coronary arteries: Mild coronary artery calcification. Mediastinal space: No abnormal uptake. Liver: No abnormal uptake. Small calcifications in keeping with sequela of old granulomatous disease. Gallbladder and biliary ducts: No abnormal uptake. Prior cholecystectomy. Pancreas: No abnormal uptake. Spleen: No abnormal uptake. Small calcifications in keeping with sequela of old granulomatous disease. Adrenal glands: No abnormal uptake. Kidneys and ureters: Normal physiologic uptake. Stomach and bowel: No abnormal uptake. Mild colonic diverticulosis. Vasculature: No abnormal uptake. Moderate systemic atherosclerotic calcification without aortic aneurysm. Lymph nodes: No abnormal uptake. No lymphadenopathy in the head, neck, chest, abdomen, pelvis, and extremities. Skeleton: Proximal right femur intramedullary nail and screw fixation with moderate FDG uptake at the fractured right greater trochanter. Biphasic scoliosis. Degenerative change along the spine. Soft tissues: No abnormal uptake in the visualized head, neck, chest, abdomen, pelvis, and extremities. PET/PET skull to thigh INIT [id number] IMPRESSION: 1. 1 cm left apical nodule is non FDG avid, favoring benignity. Recommend continued follow-up chest CT. 2. Additional chronic and incidental findings as above.
== END 2023-09-16 09:47 | disposition home or self-care (01) ==
PROVIDERS: PCP Family Medicine; Visit Provider Family Medicine
DX: R91.1 Solitary pulmonary nodule (principal); Z90.49 Acquired absence of other specified parts of digestive tract; I70.0 Atherosclerosis of aorta
CPT/HCPCS: 78815; A9552

== ENCOUNTER → 2023-09-18 13:27 | Outpatient (BNVA) | payer MEDICARE, SELFPAY | PROVIDERS: PCP Family Medicine; Visit Provider Physician Assistant | DX: S72.141D Displaced intertrochanteric fracture of right femur, subsequent encounter for closed fracture with routine healing; X58.XXXD Exposure to other specified factors, subsequent encounter | CPT/HCPCS: 73502; 99024 ==

== ENCOUNTER → 2024-01-02 11:16 | Outpatient (BNVA) | payer MEDICARE, SELFPAY | PROVIDERS: PCP Family Medicine; Visit Provider Family Medicine | DX: R73.9 Hyperglycemia, unspecified (principal); E78.5 Hyperlipidemia, unspecified | CPT/HCPCS: 80053; 80061; 83036 ==